=== PATIENT | female | born 1955 | race Caucasian/White ===

== ENCOUNTER 2022-02-01 14:34 | Outpatient (CLI) | payer MEDICARE, OTHER, SELFPAY ==
[2022-02-01 17:58] LABS: Cholesterol* 229 mg/dL (90-199)
[2022-02-01 17:59] LABS: Glucose* 95 mg/dL (60-115); HDL Cholesterol* 82 mg/dL (>=50); LDL Cholesterol Calculated 122 mg/dL (<100); Triglycerides* 123 mg/dL (40-149)
== END 2022-02-01 14:35 | disposition home or self-care (01) ==
LOC: NFLDREF 14:34
PROVIDERS: Visit Provider Internal Medicine
DX: Z00.00 Encounter for general adult medical examination without abnormal findings (principal); E78.5 Hyperlipidemia, unspecified; Z13.1 Encounter for screening for diabetes mellitus
CPT/HCPCS: 80061; 82947

== ENCOUNTER 2022-09-23 08:12 | Outpatient (CLI) | payer MEDICARE, OTHER, SELFPAY | END 2022-09-23 08:13 | disposition home or self-care (01) | PROVIDERS: Visit Provider Internal Medicine | DX: E78.5 Hyperlipidemia, unspecified (principal) | CPT/HCPCS: 80061 ==

== ENCOUNTER 2023-10-03 09:32 | Outpatient (CLI) | payer MEDICARE, OTHER, SELFPAY ==
--- OUTSIDE RECORDS SUMMARY | 2023-10-22 21:42 | XMS_ITS | Referral Summary ---
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 Care Plan ACP (advance care planning) 04/02/2012 [...] on file Medical Devices Implanted Type Area Brazer Assembler Device Identifier Shelf Expiration Date Model / Serial / Lot Imp Scr Locking 4.5x26mm Aqls [id number] - [id number] Implanted:Qt y: 2 on 03/09/2022 by Richard Villegas MD at [facility] Metallic Hardware/An chor Left: Shoulder [employer] [id number] / / 42 10 03/08/20 22 Imp Scr Fixation 4.5x18mm Aqls [id number] - [id number] Implanted:Qt y: 1 on 03/09/2022 by Richard Villegas MD at [facility] Metallic Hardware/An chor Left: Shoulder [employer] [id number] / / 42 10 03/08/20 22 Imp Baseplate Shldr Glenoid Aqls Rev Ii 25mm [id number] - [id number] Implanted:Qt y: 1 on 03/09/2022 by Richard Vlilegas MD at [facility] Total Joint Component/I nsert Left: Shoulder [employer] [id number] 10/08/2025 [id number] / / [id number] Imp Comp Shldr Glenoid Sphere Aqls Rev Ii 46c34tt Hqh946 - [id number] Implanted:Qt y: 1 on 03/09/2022 by Richard Villegas MD at [facility] Total Joint Component/I nsert Left: Shoulder [employer] [id number] 01/03/2027 [id number] / [id number] / Stem Humeral Ptc Long 2b - [id number] Implanted:Qt y: 1 on 03/09/2022 by Richard Villegas MD at [facility] Total Joint Component/I nsert Left: Shoulder [employer] [id number] 04/16/2026 [id number] / [id number] / Tray Reverse Low Offset +0 Xft558 - [id number] Implanted:Qt y: 1 on 03/09/2022 by Richard Villegas MD at [facility] Total Joint Component/I nsert Left: Shoulder [employer] [id number] 01/18/2027 [id number] / [id number] / Insert Revision Reverse +10/24 36mm - [id number] Implanted:Qt y: 1 on 03/09/2022 by Richard Villegas MD at [facility] Total Joint Component/I nsert Left: Shoulder [employer] [id number] 10/19/2026 [id number] / [id number] / Procedures Procedure Name Priority Date/Time Associated Diagnosis Comments MA SCREENING BILATERAL W/ HERNANDO Routine 09/01/2023 12:29 PM CDT Visit for screening mammogram GLUCOSE Routine 03/10/2022 8:39 AM CDT DX BONE DENSITY Routine 06/26/2020 1:49 PM PRODUCTION ENGINE REPAIRER Osteopenia COLONOSCOPY - HIM SCAN Routine 03/08/2016 [...] possible genetic testing and supplemental screening is: [phone]. Narrative 09/01/2023 2:59 PM CDT BILATERAL FULL [...] MD LAB - BLOOD ORDERAB LES LABORATORY [facility] [address] floor, [address] [place] [address], [facility] [phone] * DX Hip/Pelvis/Spine (06/26/2020 1:49 PM PRODUCTION ENGINE REPAIRER) Anatomical Region Laterality Modality Dexa Bone Mineral Den sity Impressions 06/26/2020 3:52 PM PRODUCTION ENGINE REPAIRER IMPRESSION: Normal bone mineral density. No statistically significant change in bone mineral density since 06/07/2017. ROSEANNE HOLDEN MD Narrative 06/26/2020 3:52 PM PRODUCTION ENGINE REPAIRER DX HIP/PELVIS/SPINE ??06/26/2020 1:49 PM HISTORY: ??Osteopenia. FINDINGS: This DEXA scan was performed using a Vasopharm scanner. DEXA results are reported according to [...] This DEXA scan was performed using a Vasopharm scanner. DEXA results are reported according to [...] Performing Organization Information: ? [place] ? [facility] ? [address] [place] [address] ? Antonio Tay M.D. Erin Padron MD LAB - BLOOD ORDERAB LES [facility] [address] [place] [address] * FOB (Fecal Occult Blood) (BFP) (11/08/2013) [...] Performing Organization Information: ? [place] ? [facility] ? [address] [place] [address] ? Antonio Tay M.D. Erin Padron MD LAB - NON-BEAKER NO N-BLOOD Performing Organization Address [facility] de Phone Number [facility] [address] [place] [address] * Hepatits C antibody ([facility]) (10/26/2013 10:06 AM CDT) HCV Antibody NON-REACTI VE NON-REACTI VE [facility] SIGNAL TO CUT OFF - [facility] 0.02 <1.00 [facility] Blood specimen (specimen) 10/26/2013 10:06 AM CDT 10/27/2013 2:07 AM CDT Narrative Resulting Agency Comment Performing Organization Information: ? CB ? [facility] ? [address] [place] [address] ? Antonio Tay M.D. Erin Padron MD LAB - BLOOD ORDERAB LES Performing Organization Address City/[facility] Co de Phone Number [facility] [address] [facility] [place] [address] * CT COLONOGRAPHY INC IMAGE PROCESS, SCREENING (12/06/2006) Anatomical Region Laterality Modality Other Provider Abstract GENERAL IMAGING from Last 3 Months or Most Recently Relevant to Health Maintenance Advance Directives For more information, please contact: [phone] * Full Code (Latest Code Status on File) Date Activated Date Inactivated Comments 03/09/2022 2:11 PM 03/10/2022 2:13 PM All basic and advanced life-sustaining interventions are performed as appropriate Question Answer Comments Code status determined by: Discussion with nanci goodwin/ legal decision maker Care Teams Bar Examiner Relationship Specialty Start Date End Date Monica Perrin MD [address] [place] [id number] PCP - General performing arts technicians 05/23/19
--- OUTSIDE RECORDS SUMMARY | 2023-10-22 21:42 | XMS_ITS | Encounter Summary ---
Author Organization [place] Address [address] [place] [address]. [place] [address] Care Team Providers Care Wind Turbine Installer Name Role Phone Monica Perrin MD Primary [...] on filedocumented in this encounter Care Teams Wind Turbine Installer Relationship Specialty Start Date End Date Monica Perrin MD [address] [place] [address] PCP - General tableau developer 05/23/19 documented as of this encounter
--- OUTSIDE RECORDS SUMMARY | 2023-10-22 21:42 | XMS_ITS | Encounter Summary ---
Author Organization [place] Address [address] [place] [address]. [place] [address] Care Team Providers Care Inspector Glass Or Mirror Name Role Phone Monica Perrin MD Primary Care Provider [phone] Encounter Details Date Type Department Care Team [...] on filedocumented in this encounter Care Teams Inspector Glass Or Mirror Relationship Specialty Start Date End Date Monica Perrin MD [address] [place] [address] PCP - General intermission coordinator 05/23/19 documented as of this encounter
--- OUTSIDE RECORDS SUMMARY | 2023-10-22 21:42 | XMS_ITS | Encounter Summary ---
Author Organization [place] Address [address] [place] [address]. [place] [address] Care Team Providers Care Vision Care Associate Name Role Phone Monica Perrin MD Primary [...] on filedocumented in this encounter Care Teams Vision Care Associate Relationship Specialty Start Date End Date Monica Perrin MD [address] [place] [address] PCP - General executive assistant to general counsel 05/23/19 documented as of this encounter
--- OUTSIDE RECORDS SUMMARY | 2023-10-22 21:42 | XMS_ITS | Encounter Summary ---
Author Organization [place] Address [address] [place] [address]. [place] [address] Care Team Providers Care Special Events Manager Name Role Phone Erin Padron MD [facility]available [facility] Melissa Guillen PA-C Unavailable Monica Perrin MD Primary Care Provider Reason for Visit * Reason Onset Date Comments MyChart Communication 06/06/2016 Encounter Details Date Type Department Care Team (Latest Contact Info) Description 06/06/2016 MyC Medical Advice [facility] [address] [place] [address] [address] [place] [address] Melissa Guillen PA-C [facility] [address] [facility] [address], [facility] [address] [place] [address] MyChart Communication Social History Tobacco Use Types [...] Melissa Guillen PA Sent: 06/06/2016 6:43 AM TRAVELERS' AID WORKER Subject: Update on facial pain HI Melissa, I have been taking the Carbamazepine 200 MG bid for almost a week. Not much difference in my pain. I do have an appointment with Neurology on Jun 14. Any suggestions? Have a good week, Nikki Lind ELERS' AID WORKER documented in this encounter Plan of Treatment Not on file documented as of this encounter Visit Diagnoses Not on filedocumented in this encounter Care Teams Special Events Manager Relationship Specialty Start Date End Date Monica Perrin MD [address] [place] [address] PCP - General blasting entry specialist 05/23/19 Erin Padron MD NO INFO AVAILABLE 12/08/22 Assigned PCP 10/29/17 11/17/18 Melissa Guillen PA-C [facility] [address] [place] [address] Assigned PCP 11/18/18 05/25/19 documented as of this encounter
--- OUTSIDE RECORDS SUMMARY | 2023-10-22 21:42 | XMS_ITS | Encounter Summary ---
Author Organization [place] Address [address] [place] [address]. [place] [address] Care Team Providers Care Health Service Worker Name Role Phone Monica Perrin MD Primary Care Provider Reason for Referral * Diagnostic Imaging Mammo (Routine) - Pending Review Specialty Diagnoses / Procedures Referred By Jorge galdamez Referred To Contact Radiology. Diagnoses Visit for screening mammogram Procedures MA Screen Bilateral w/Monica Jimenez MD [address] [place] [address] Referral ID Status Reason Start Date Expiration Date V isits Requested Visits Authorized [id number] Pending Review 08/07/2023 08/06/2024 1 1 Reason for Visit * Diagnostic Imaging Mammo (Routine) - Pending Review Specialty Diagnoses / Procedures Referred By Jorge galdamez Referred To Contact Radiology. Diagnoses Visit for screening mammogram Procedures MA Screen Bilateral w/Monica Jimenez MD [address] [employer] [address] [place] [address] Referral ID Status Reason Start Date Expiration Date V isits Requested Visits Authorized [id number] Pending Review 08/07/2023 08/06/2024 1 1 Encounter Details Date Type Department Care Team (Latest Contact Info) Description 09/01/2023 11:00 AM CDT - 09/01/2023 11:59 PM CDT Hospital Encounter [facility] [address], [address] [place] [address] Monica Perrin MD [address] [facility] [address] [place] [address] Visit for screening mammogram Discharge Disposition: Home [...] possible genetic testing and supplemental screening is: [phone]. Narrative 09/01/2023 2:59 PM CDT BILATERAL FULL [...] mammogram documented in this encounter Care Teams Health Service Worker Relationship Specialty Start Date End Date Monica Perrin MD [address] [place] [address] PCP - General oil analyst 05/23/19 documented as of this encounter
--- OUTSIDE RECORDS SUMMARY | 2023-10-22 21:42 | XMS_ITS | Encounter Summary ---
Author Organization [facility] Address [address] [place] [address]. [place] [address] Care Team Providers Care Columnist/Commentator Name Role Phone Monica Perrin MD Primary Care Provider [phone] Encounter Details Date Type Department Care Team (Late st Contact Info) Description 02/22/2022 Orders Only [facility] Centralized Scheduling [address] [place] [address] Jarrett Fiore MD [address] [place] [address] Encounter for laboratory testing for COVID-19 virus [...] the Xpert Xpress SARS-CoV-2 Assay on the [employer]. Additional information about this Emergency [...] COVID-19. This test was validated by the [facility] Infectious Diseases Diagnostic Laboratory. This laboratory is certified under the Clinical Laboratory Improvement Amendments of 1988 (CLIA-88) as qualified to perform high complexity laboratory testing. Jarrett Fiore MD LAB - MICRO GENERAL ORDERABLES [facility] Inf. Diseases Diag. Lab [address] [facility], [address] [place] [address], [facility] [phone] documented in this encounter Visit Diagnoses Diagnosis Encounter for laboratory testing for COVID-19 virus documented in this encounter Care Teams Columnist/Commentator Relationship Specialty Start Date End Date Monica Perrin MD [address] [facility] [address] [place] [address] PCP - General carbon plant grinder 05/23/19 documented as of this encounter
--- OUTSIDE RECORDS SUMMARY | 2023-10-22 21:43 | XMS_ITS | Encounter Summary ---
Author Organization [place] Address [address] [place] [address]. [place] [address] Care Team Providers Care Veterinary Receptionist Name Role Phone Erin Padron MD Unavailable UnavailMelissa Clemente PA-C Unavailable Monica Perrin MD Primary Care Provider [phone] Encounter Details Date Type Department Care Team (Late st Contact Info) Description 08/14/2006 [facility] Medical Advice [facility] [address] [place] [address] [address] [place] [phone] [facility] Social History Tobacco Use Types Packs/Day [...] on filedocumented in this encounter Care Teams Veterinary Receptionist Relationship Specialty Start Date End Date Monica Perrin MD [address] [facility] [address] [facility] [address] [place] [address] PCP - General neurosurgeon 05/23/19 Erin Padron MD NO INFO AVAILABLE 12/08/22 Assigned PCP 10/29/17 11/17/18 Melissa Guillen PA-C [facility] [address], [facility] 200 [place] [address] Assigned PCP 11/18/18 05/25/19 documented as of this encounter
--- OUTSIDE RECORDS SUMMARY | 2023-10-22 21:43 | XMS_ITS | Encounter Summary ---
Author Organization [place] Address [address] [place] [address]. [place] [address] Care Team Providers Care Mine Engineering Superintendent Name Role Phone Erin Padron MD Unavailable UnavailMelissa Clemente PA-C Unavailable Monica Perrin MD Primary Care Provider Encounter Details Date Type Department Care Team (Late st Contact Info) Description 04/01/2007 [facility] Medical Advice [facility] [address] [place] [address] [address] [place] [phone] [facility] Social History Tobacco Use Types Packs/Day [...] on filedocumented in this encounter Care Teams Mine Engineering Superintendent Relationship Specialty Start Date End Date Monica Perrin MD [address] [facility] [address] [facility] [address] [place] [address] PCP - General flask pusher 05/23/19 Erin Padron MD NO INFO AVAILABLE 12/08/22 Assigned PCP 10/29/17 11/17/18 Melissa Guillen PA-C [facility] [address], [facility] 200 [place] [address] Assigned PCP 11/18/18 05/25/19 documented as of this encounter
--- OUTSIDE RECORDS SUMMARY | 2023-10-22 21:43 | XMS_ITS | Encounter Summary ---
Author Organization [place] Address [address] [place] [address] Care Team Providers Care Director Of Perioperative Services Name Role Phone Erin Padron MD Unavailable Melissa Florentino PA-C Unavailable Monica Perrin MD Primary Care Provider Encounter Details Date Type Department Care Team (Late st Contact Info) Description 10/08/2015 MyC Medical Advice [facility] [address] [place] [address] [address] [place] [address] Erin Padron MD NO INFO [...] encounter Miscellaneous Notes * Telephone Encounter - Macrina HernandezMARTINA - 10/08/2015 1:57 PM CDTFrom: Nikki Wadsworth [...] an Rx could you send it to [facility]? documented in this encounter Plan of Treatment Not on file documented as of this encounter Visit Diagnoses Not on filedocumented in this encounter Care Teams Director Of Perioperative Services Relationship Specialty Start Date End Date Monica Perrin MD [address] [facility] [address] [place] [address] PCP - General side framer 05/23/19 Erin Padron MD NO INFO AVAILABLE 12/08/22 Assigned PCP 10/29/17 11/17/18 Melissa Guillen PA-C [facility] [address], [facility] [address] [place] [address] Assigned PCP 11/18/18 05/25/19 documented as of this encounter
--- OUTSIDE RECORDS SUMMARY | 2023-10-22 21:43 | XMS_ITS | Encounter Summary ---
Author Organization [place] Address [address] [place] [address]. [place] [address] Care Team Providers Care Licensed Land Surveyor Name Role Phone Erin Padron MD Unavailable Unavailabl e Melissa Guillen PA-C Unavailable Monica Perrin MD Primary Care Provider [phone] Reason for Visit * Reason Comments Medication Refill Encounter Details Date Type Department Care Team (Late st Contact Info) Description 01/06/2016 Refill [facility] [address] [place] [phone] Melissa Guillen PA-C [facility] [address] [facility] [place], [facility] [address] [place], [place] [address] Medication Refill Social History Tobacco Use Types [...] on filedocumented in this encounter Care Teams Licensed Land Surveyor Relationship Specialty Start Date End Date Monica Perrin MD [address] [place], [place] [address] PCP - General radio installer automobile 05/23/19 Erin Padron MD NO INFO AVAILABLE 12/08/22 Assigned PCP 10/29/17 11/17/18 Melissa Guillen PA-C [facility] [address], [address] [place], [place] [address] Assigned PCP 11/18/18 05/25/19 documented as of this encounter
--- OUTSIDE RECORDS SUMMARY | 2023-10-22 21:43 | XMS_ITS | Encounter Summary ---
Author Organization [place] Address [address] [place] [address]. [place] [address] Care Team Providers Care Canal Boat Captain Name Role Phone Erin Padron MD Unavailable UnavailMelissa Clemente PA-C Unavailable Monica Perrin MD Primary Care Provider [phone] Encounter Details Date Type Department Care Team (Late st Contact Info) Description 09/11/2006 [facility] [place] [facility] [address] [place] [address] [address] [place] [phone] [facility] Social History Tobacco Use Types Packs/Day Years [...] on filedocumented in this encounter Care Teams Canal Boat Captain Relationship Specialty Start Date End Date Monica Perrin MD [address] [facility] [address]LA [facility] [address] [place] [address] PCP - General water treatment plant operator 05/23/19 Erin Padron MD NO INFO AVAILABLE 12/08/22 Assigned PCP 10/29/17 11/17/18 Melissa Guillen PA-C [facility] [address], [facility] [address] [place] [address] Assigned PCP 11/18/18 05/25/19 documented as of this encounter
== END 2023-10-03 09:33 | disposition home or self-care (01) ==
LOC: NFLDREF 10-22 21:40
PROVIDERS: PCP Internal Medicine; Referring Provider Internal Medicine; Visit Provider Internal Medicine
DX: Z00.00 Encounter for general adult medical examination without abnormal findings (principal); E78.5 Hyperlipidemia, unspecified
CPT/HCPCS: 80061

== ENCOUNTER 2023-10-05 13:43 | Outpatient (CLI) | payer MEDICARE, OTHER, SELFPAY ==
--- OUTSIDE RECORDS SUMMARY | 2023-10-05 13:47 | XMS_ITS | Encounter Summary ---
Author Organization [facility] Address [address] [place] [address]. [place] [address] Care Team Providers Care Barn Worker Name Role Phone Monica Perrin MD Primary Care Provider [phone] Encounter Details Date Type Department Care Team (Latest Contact Info) Description 09/01/2023 Travel Social History Tobacco Use Types Packs/Day Years Used Date Smoking Tobacco: Never Smokeless Tobacco: Never Alcohol Use Standard Drinks/Week Comments Yes 5 (1 standard drink = 0.6 oz pur e alcohol) occasionally Adolescent Education Answer Date Record ed Getting School Help Needed Not on file 02/26 Sex and Gender Information Value Date Recorded Sex Assigned at Female 02/27/2022 8:08 AM CDT Gender Identity Female 02/27/2022 8:08 AM CDT Sexual Orientation Not on file documented as of this encounter Plan of Treatment Not on file documented as of this encounter Visit Diagnoses Not on filedocumented in this encounter Care Teams Barn Worker Relationship Specialty Start Date End Date Monica Perrin MD [address] [place] [address] PCP - General food cart attendant 05/23/19 documented as of this encounter
--- OUTSIDE RECORDS SUMMARY | 2023-10-05 13:47 | XMS_ITS | Referral Summary ---
Author Organization [facility] Address [address] [place] [address] Care Team Providers Care Hydroelectric Systems Technician Name Role Phone Monica Perrin MD Primary Care Provider [phone] Encounters Date Type Department Care Team Description 09/01/2023 Travel 09/01/2023 11:00 AM CDT - 09/01/2023 11:59 PM CDT Hospital Encounter [facility] [address], [address] [place] [address] Monica Perrin MD Visit for screening mammogram Discharge Disposition: Home or Self Care 08/28/2023 Travel from Last 3 Months Allergies Active Allergy Reactions Criticality Noted Date Comments No Known Allergies 07/07/1999 Medications Medication Sig Dispensed Refills Start Date End Date Status fish oil-omega-3 fatty acids 1000 MG capsule Take 1 g by mouth daily Active vitamin D3 (CHOLECALCIFEROL) 50 mcg (2000 units) tablet Take 1 tablet by mouth daily Active Magnesium Oxide 500 MG TABS Take 500 mg by mouth daily Active acetaminophen (TYLENOL) 500 MG tablet Take 1,000 mg by mouth 2 times daily as needed for mild pain (500MG X 2 = 1,000MG) Active escitalopram (LEXAPRO) 10 MG tablet Take 10 mg by mouth daily Active omeprazole (PRILOSEC) [address] capsule Take 20 mg by mouth daily Active senna-docusate (SENOKOT-S/PERICOLAC E) 8.6-50 MG tablet Take 1-2 tablets by mouth 2 times daily Take while on oral narcotics to prevent or treat constipation. 30 tablet 03/09/2022 Active oxyCODONE (ROXICODONE) 5 MG tablet Take 1-2 tablets (5-10 mg) by mouth every 4 hours as needed for moderate to severe pain 30 tablet 03/09/2022 Active hydrOXYzine (ATARAX) 10 MG tablet Take 1 tablet (10 mg) by mouth every 6 hours as needed for itching or anxiety (with pain, moderate pain) 30 tablet 03/09/2022 Active Active Problems Problem Noted Date Diagnosed Date Health Alf 04/02/2012 Overview: State Tier Level: Tier 2 Status: Care Professionals: See Letters for [facility] Care Plan ACP (advance care planning) 04/02/2012 Overview: Advance Care Planning: ACP Review and Resources Provided: Reviewed chart for advance care plan. Nikki Norton has no plan or code status on file. Discussed available resources and provided with information. Confirmed code status reflects current choices pending further ACP discussions. Confirmed/documented designated decision maker(s). See permanent comments section of demographics in clinical tab. Added by Sveta Patel on 10/26/2013 Malignant basal cell neoplasm of skin 04/02/2012 Overview: Do you wish to do the replacement in the background? yes Depression with anxiety 04/02/2012 Family history of malignant neoplasm of breast Other kyphoscoliosis and scoliosis Resolved Problems Problem Noted Date Diagnosed Date Resolved Date Cataract 05/04/2010 10/24/2014 Overview: Utility update for deleted IMO code Imo Update utility Other acne 04/02/2012 Benign neoplasm of skin 03/15 Overview: Problem list name updated by automated process. Provider to review Mitral and aortic valve disease 04/02/2012 Overview: Problem list name updated by automated process. Provider to review Immunizations Name Administration Dates Next Due COVID-19 Bivalent 12+ (Pfizer) 11/18/2021 COVID-19 MONOVALENT 12+ (Pfizer) 02/10/2021,05/15,05/12/2020 HEPA 11/10/1998,04/14/1998 Influenza (H1N1) 06/12/2009 Influenza (IIV3) PF 03/19/2012,01/18/2010,2008 TD,PF 7+ (Tenivac) 06/20/2003 TDAP Vaccine (Boostrix) 10/05/2011 Social History Tobacco Use Types Packs/Day Years Used Date Smoking Tobacco: Never Smokeless Tobacco: Never Tobacco Cessation:Counseling Given: Not Answered Alcohol Use Standard Drinks/Week Comments Yes 5 (1 standard drink = 0.6 oz pur e alcohol) occasionally Adolescent Education Answer Date Record ed Getting School Help Needed Not on file 02/26 Sex and Gender Information Value Date Recorded Sex Assigned at Female 02/27/2022 8:08 AM CDT Gender Identity Female 02/27/2022 8:08 AM CDT Sexual Orientation Not on file Last Filed Vital Signs Vital Sign Reading Time Taken Comments Blood Pressure 155/74 03/10/2022 8:31 AM CDT Pulse 72 03/10/2022 8:31 AM CDT Temperature 36.9 ??C (98.5 ??F) 03/10/2022 8:31 AM CD T Respiratory Rate 16 03/10/2022 8:31 AM CDT Oxygen Saturation 97% 03/10/2022 8:31 AM CDT Inhaled Oxygen Concentration - - Weight 70.4 kg (155 lb 4.8 oz) 03/09/2022 7:39 A M CDT Height 167.6 cm (5' 6) 03/09/2022 7:39 AM CDT Body Mass Index 25.07 03/09/2022 7:39 AM CDT Plan of Treatment Not on file Medical Devices Implanted Type Area Clean Up Worker Device Identifier Shelf Expiration Date Model / Serial / Lot Imp Scr Locking 4.5x26mm Aqls [id number] - [id number] Implanted:Qt y: 2 on 03/09/2022 by Richard Villegas MD at [facility] Metallic Hardware/An chor Left: Shoulder [employer] [id number] / / 42 10 03/08/20 22 Imp Scr Fixation 4.5x18mm Aqls [id number] - [id number] Implanted:Qt y: 1 on 03/09/2022 by Richard Villegas MD at [facility] Metallic Hardware/An chor Left: Shoulder [employer] [id number] / / 42 10 03/08/20 22 Imp Baseplate Shldr Glenoid Aqls Rev Ii 25mm [id number] - [id number] Implanted:Qt y: 1 on 03/09/2022 by Richard Villegas MD at [facility] Total Joint Component/I nsert Left: Shoulder [employer] [id number] 10/08/2025 [id number] / / [id number] Imp Comp Shldr Glenoid Sphere Aqls Rev Ii [id number] [id number] - [id number] Implanted:Qt y: 1 on 03/09/2022 by Richard Villegas MD at [facility] Total Joint Component/I nsert Left: Shoulder [employer] [id number] 01/03/2027 [id number] / [id number] / Stem Humeral Ptc Long 2b - [id number] Implanted:Qt y: 1 on 03/09/2022 by Richard Villegas MD at [facility] Total Joint Component/I nsert Left: Shoulder [employer] [id number] 04/16/2026 [id number] / [id number] / Tray Reverse Low Offset +0 [id number] - [id number] Implanted:Qt y: 1 on 03/09/2022 by Richard Villegas MD at [facility] Total Joint Component/I nsert Left: Shoulder [employer] [id number] 01/18/2027 [id number] / [id number] / Insert Revision Reverse +10/24 36mm - [id number] Implanted:Qt y: 1 on 03/09/2022 by Richard Villegas MD at [facility] Total Joint Component/I nsert Left: Shoulder [employer] [id number] 10/19/2026 [id number] / [id number] / Procedures Procedure Name Priority Date/Time Associated Diagnosis Comments MA SCREENING BILATERAL W/ HERNANDO Routine 09/01/2023 12:29 PM CDT Visit for screening mammogram GLUCOSE Routine 03/10/2022 8:39 AM CDT DX BONE DENSITY Routine 06/26/2020 1:49 PM FILLER IN Osteopenia COLONOSCOPY - HIM SCAN Routine 03/08/2016 LIPID PROFILE Routine 11/18/2015 4:14 PM CDT Encounter for gynecological examination without abnormal finding ZZCL AFF FECAL BLOOD ASSAY Routine 11/08/2013 Routine gynecological examination THINPREP PAP RFLX HPV MRNA E6/E7 ([facility]) Routine 10/26/2013 10:07 AM CDT Routine gynecological examination HEPATITIS C ANTIBODY Routine 10/26/2013 10:06 AM CDT Routine gynecological examination HC CT COLONOGRAPHY, SCREENING Routine 12/06/2006 SCANNING RESULTS from Last 3 Months or Most Recently Relevant to Health Maintenance Results * MA Screen Bilateral w/[place]ern[place] (09/01/2023 12:29 PM CDT) Anatomical Region Laterality Modality Breast Bilateral Mammography Impressions 09/01/2023 2:59 PM CDT IMPRESSION: ACR BI-RADS Category 1: Negative BREAST CANCER SCREENING RECOMMENDATION: Routine yearly mammography beginning at age 40 or as discussed with your provider. The results and recommendations of this examination will be communicated to the patient. Abbe Farias MD Based on the pre-exam history questionnaire and medical history, there may be increased risk for developing breast cancer or other cancers in the future. The contact for scheduling cancer genetic counseling for risk assessment and possible genetic testing and supplemental screening is: [phone]. Narrative 09/01/2023 2:59 PM CDT BILATERAL FULL FIELD DIGITAL SCREENING MAMMOGRAM WITH TOMOSYNTHESIS Performed on: 09/01/23 Compared to: 08/30/2022 and 06/07/2017 Technique: ??This study was evaluated with the assistance of Computer-Aided Detection. ??Breast Tomosynthesis was used in interpretation. Findings: The breasts are heterogeneously dense, which may obscure small masses. ??There is no radiographic evidence of malignancy. Monica Perrin MD IMG MAMMOGRAPHY SHELLI MOSHER * (ABNORMAL) Glucose (03/10/2022 8:39 AM CDT) Glucose 116(H) 70 - 99 mg/dL 03/10/2022 9:19 AM CDT LABORATORY Patient Fasting > 8hrs? Unknown 03/10/2022 9:19 AM CDT LABORATORY Blood STRUCTURE OF RIGHT UPPER LIMB / Unknown Venipuncture / Unknown 03/10/2022 8:39 AM CDT 03/10/2022 8:51 AM CDT Richard Villegas MD LAB - BLOOD ORDERAB LES LABORATORY [facility] [address], [address] [place] [address], [facility] [phone] * DX Hip/Pelvis/Spine (06/26/2020 1:49 PM FILLER IN) Anatomical Region Laterality Modality Dexa Bone Mineral Den sity Impressions 06/26/2020 3:52 PM FILLER IN IMPRESSION: Normal bone mineral density. No statistically significant change in bone mineral density since 06/07/2017. ROSEANNE HOLDEN MD Narrative 06/26/2020 3:52 PM FILLER IN DX HIP/PELVIS/SPINE ??06/26/2020 1:49 PM HISTORY: ??Osteopenia. FINDINGS: This DEXA scan was performed using a AfterSteps scanner. DEXA results are reported according to T-score. ??The T-score is the standard deviation from the peak bone mass in a normal young adult population. ??In accordance with the ISCD (International Society of Clinical Densitometry), the lower of the total proximal femur vs femoral neck T-score is reported. ??Osteopenia is defined as a T-score of -1.0 to -2.5. ??Osteoporosis is defined as a T-score of less than -2.5. T-SCORES: Lumbar Spine L1-L4 T-score: -0.9 Left Hip (Neck) T-score: -0.7 Right Hip (Neck) T-score: -0.8 Hip lowest neck BMD: 0.929 gm/cm2. PERCENT CHANGE since 06/07/2017: Lumbar Spine: Not significantly changed, -0.5% Femurs: Not significantly changed, 0.7% FRAX 10-YEAR PROBABILITY OF FRACTURE*: Major Osteoporotic: 7.0% Hip: 0.4% *All treatment decisions require clinical judgment and consideration of individual patient factors which may not be captured in the FRAX model and the risk of fracture may be over- or under-estimated by FRAX. Procedure Note Roseanne Holden MD - 06/26/2020 DX HIP/PELVIS/SPINE 06/26/2020 1:49 PM HISTORY: Osteopenia. FINDINGS: This DEXA scan was performed using a AfterSteps scanner. DEXA results are reported according to T-score. The T-score is the standard deviation from the peak bone mass in a normal young adult population. In accordance with the ISCD (International Society of Clinical Densitometry), the lower of the total proximal femur vs femoral neck T-score is reported. Osteopenia is defined as a T-score of -1.0 to -2.5. Osteoporosis is defined as a T-score of less than -2.5. T-SCORES: Lumbar Spine L1-L4 T-score: -0.9 Left Hip (Neck) T-score: -0.7 Right Hip (Neck) T-score: -0.8 Hip lowest neck BMD: 0.929 gm/cm2. PERCENT CHANGE since 06/07/2017: Lumbar Spine: Not significantly changed, -0.5% Femurs: Not significantly changed, 0.7% FRAX 10-YEAR PROBABILITY OF FRACTURE*: Major Osteoporotic: 7.0% Hip: 0.4% *All treatment decisions require clinical judgment and consideration of individual patient factors which may not be captured in the FRAX model and the risk of fracture may be over- or under-estimated by FRAX. IMPRESSION: Normal bone mineral density. No statistically significant change in bone mineral density since 06/07/2017. ROSEANNE HOLDEN MD Monica Perrin MD IMG DEXA ORDERABLES * Colonoscopy - HIM Scan (03/08/2016) Provider Outside PROCEDURES * (ABNORMAL) Lipid Profile ([facility]) (11/18/2015 4:14 PM CDT) Cholesterol 207(H) 125 - 200 mg/dL [facility] HDL Cholesterol 95 > OR = 46 mg/dL [facility] Triglycerides 53 <150 mg/dL [facility] LDL Cholesterol Calculated 101 <130 mg/dL (calc) [facility] Comment: Desirable range <100 mg/dL for patients with CHD or diabetes and <70 mg/dL for diabetic patients with known heart disease. Cholesterol/HDL Ratio 2.2 < OR = 5.0 (calc) [facility] Non HDL Cholesterol 112 mg/dL (calc) [facility] Comment: Target for non-HDL cholesterol is 30 mg/dL higher than LDL cholesterol target. Blood specimen (specimen) 11/18/2015 4:14 PM CDT 11/19/2015 3:48 AM CDT Narrative Resulting Agency Comment Performing Organization Information: ? CB ? [facility] ? [address] [place] [address] ? Antonio Tay M.D. Erin Padron MD LAB - BLOOD ORDERAB LES [facility] [address] [place] [address] * FOB (Fecal Occult Blood) ([facility]) (11/08/2013) Occult Blood NEG [facility] INTERNAL 11/08/2013 Erin Padron MD LABORATORY [facility] INTERNAL * ThinPrep Pap and HPV (mRNA E6/E7){HPV-REFLEX} ([facility]) (10/26/2013 10:07 AM CDT) Clinical History P3 [facility] LMP POST CHRISTY [facility] Last Pap Diagnosis 52,313 [facility] Prev Bx Dx NONE GIVEN [facility] Source Cervix [facility] Statement of Adequacy SEE COMMENT [facility] Comment: Satisfactory for evaluation. Endocervical/transformation zone component present. Descriptive Diagnosis Negative for intraepithelial lesion or malignancy. [facility] Cytotechnologi st: ERP, CT(ASCP) [facility] Cervical swab (specimen) 10/26/2013 10:07 AM CDT 10/27/2013 3:50 AM CDT Narrative Resulting Agency Comment Performing Organization Information: ? [place] ? [facility] ? [address] [place] [address] ? Antonio Tay M.D. Erin Padron MD LAB - NON-BEAKER NO N-BLOOD Performing Organization Address [facility] de Phone Number [facility] [address] [place] [address] * Hepatits C antibody ([facility]) (10/26/2013 10:06 AM CDT) HCV Antibody NON-REACTI VE NON-REACTI VE [facility] SIGNAL TO CUT OFF - [facility] 0.02 <1.00 [facility] Blood specimen (specimen) 10/26/2013 10:06 AM CDT 10/27/2013 2:07 AM CDT Narrative Resulting Agency Comment Performing Organization Information: ? CB ? [facility] ? [address] [place] [address] ? Antonio aTy M.D. Erin Padron MD LAB - BLOOD ORDERAB LES Performing Organization Address City/[facility] Co de Phone Number [facility] [address] [place] [address] * CT COLONOGRAPHY INC IMAGE PROCESS, SCREENING (12/06/2006) Anatomical Region Laterality Modality Other Provider Abstract GENERAL IMAGING from Last 3 Months or Most Recently Relevant to Health Maintenance Advance Directives For more information, please contact: [phone] * Full Code (Latest Code Status on File) Date Activated Date Inactivated Comments 03/09/2022 2:11 PM 03/10/2022 2:13 PM All basic and advanced life-sustaining interventions are performed as appropriate Question Answer Comments Code status determined by: Discussion with nanci goodwin/ legal decision maker Care Teams Hydroelectric Systems Technician Relationship Specialty Start Date End Date Monica Perrin MD [address] [place] [id number] PCP - General financial data analyst 05/23/19
--- OUTSIDE RECORDS SUMMARY | 2023-10-05 13:47 | XMS_ITS | Encounter Summary ---
Author Organization [facility] Address [address] [place] [address]. [place] [address] Care Team Providers Care Quill Skinner Name Role Phone Monica Perrin MD Primary Care Provider [phone] Encounter Details Date Type Department Care Team (Late st Contact Info) Description 02/22/2022 Orders Only [facility] Centralized Scheduling [address] [place] [address] Jarrett Fiore MD [address] [place] [address] Encounter for laboratory testing for COVID-19 virus Social History Tobacco Use Types Packs/Day Years Used Date Smoking Tobacco: Never Smokeless Tobacco: Never Alcohol Use Standard Drinks/Week Comments Yes 5 (1 standard drink = 0.6 oz pur e alcohol) occasionally Sex and Gender Information Value Date Recorded Sex Assigned at Female 02/27/2022 8:08 AM CDT Gender Identity Female 02/27/2022 8:08 AM CDT Sexual Orientation Not on file documented as of this encounter Plan of Treatment Not on file documented as of this encounter Results * Asymptomatic COVID-19 Virus (Coronavirus) by PCR Nasopharyngeal (03/05/2022 10:39 AM CDT) SARS CoV2 PCR Negative Negative 03/05/2022 3:11 PM CDT [facility] Comment:NEGATIVE: SARS-CoV-2 (COVID-19) RNA not detected, presumed negative. Swab NASOPHARYNGEAL STRUCTURE / Unknown Non-blood Collection / Unknown 03/05/2022 10:39 AM CDT 03/05/2022 10:40 AM CDT Narrative [facility] - 03/05/2022 3:11 PM CDT Testing was performed using the Xpert Xpress SARS-CoV-2 Assay on the [employer]. Additional information about this Emergency Use Authorization (EUA) assay can be found via the Lab Guide. This test should be ordered for the detection of SARS-CoV-2 in individuals who meet SARS-CoV-2 clinical and/or epidemiological criteria. Test performance is unknown in asymptomatic patients. This test is for in vitro diagnostic use under the FDA EUA for laboratories certified under CLIA to perform high complexity testing. This test has not been FDA cleared or approved. A negative result does not rule out the presence of PCR inhibitors in the specimen or target RNA in concentration below the limit of detection for the assay. The possibility of a false negative should be considered if the patient's recent exposure or clinical presentation suggests COVID-19. This test was validated by the [facility]. This laboratory is certified under the Clinical Laboratory Improvement Amendments of 1988 (CLIA-88) as qualified to perform high complexity laboratory testing. Jarrett Fiore MD LAB - MICRO GENERAL ORDERABLES [facility] Inf. Diseases Diag. Lab [address] [facility] [place] [address], [facility] [phone] documented in this encounter Visit Diagnoses Diagnosis Encounter for laboratory testing for COVID-19 virus documented in this encounter Care Teams Quill Skinner Relationship Specialty Start Date End Date Monica Perrin MD [address] [facility] [address] [place] [address] PCP - General manager mental health 05/23/19 documented as of this encounter
--- OUTSIDE RECORDS SUMMARY | 2023-10-05 13:47 | XMS_ITS | Encounter Summary ---
Author Organization [facility] Address [address] [place] [address] Care Team Providers Care Ceramics Teacher Name Role Phone Erin Padron MD [facility]available [facility] Melissa Guillen Unavailable [phone] Monica Perrin MD Primary Care Provider Reason for Visit * Reason Onset Date Comments MyChart Communication 06/06/2016 Encounter Details Date Type Department Care Team (Late st Contact Info) Description 06/06/2016 [facility] Medical Advice [facility] [address] [place] [address] [address] [place] [address] [place] [address] [place] [address] MyChart Communication Social History Tobacco Use Types Packs/Day Years [...] on file documented as of this encounter Miscellaneous Notes * Telephone Encounter - Julia Dorado MA - 06/06/2016 7:36 AM CSTFrom: Nikki Norton To: Melissa Guillen PA Sent: 06/06/2016 6:43 AM CONVEYOR FEEDER Subject: Update on facial pain HI Melissa, I have been taking the Carbamazepine 200 MG bid for almost a week. Not much difference in my pain. I do have an appointment with Neurology on Jun 14. Any suggestions? Have a good week, Nikki Lind EYOR FEEDER documented in this encounter Plan of Treatment Not on file documented as of this encounter Visit Diagnoses Not on filedocumented in this encounter Care Teams Ceramics Teacher Relationship Specialty Start Date End Date Monica Perrin MD [address] [facility] [address] [place] [address] PCP - General carpet cleaning technician 05/23/19 Erin Padron MD NO INFO AVAILABLE 12/08/22 Assigned PCP 10/29/17 11/17/18 [place] [address] [place] [address] Assigned PCP 11/18/18 05/25/19 documented as of this encounter
--- OUTSIDE RECORDS SUMMARY | 2023-10-05 13:47 | XMS_ITS | Encounter Summary ---
Author Organization [facility] Address [address] [place] [address]. [place] [address] Care Team Providers Care Business Employment Specialist Name Role Phone Erin Padron MD Unavailable Unavailabl e Melissa Guillen Unavailable [phone] Monica Perrin MD Primary Care Provider Reason for Visit * Reason Comments Medication Refill Encounter Details Date Type Department Care Team (Late st Contact Info) Description 01/06/2016 Refill [facility] [address] [place] [address] [address] [place] [phone] [place] [address] [place] [address] Medication Refill Social History Tobacco Use Types Packs/Day Years [...] on filedocumented in this encounter Care Teams Business Employment Specialist Relationship Specialty Start Date End Date Monica Perrin MD [address] [place] [address] PCP - General php mysql web developer 05/23/19 Erin Padron MD NO INFO AVAILABLE 12/08/22 Assigned PCP 10/29/17 11/17/18 [place] [address] [place] [address] Assigned PCP 11/18/18 05/25/19 documented as of this encounter
--- OUTSIDE RECORDS SUMMARY | 2023-10-05 13:47 | XMS_ITS | Encounter Summary ---
Author Organization [facility] Address [address] [place] [address]. [place] [address] Care Team Providers Care Stained Glass Glazier Helper Name Role Phone Monica Perrin MD Primary Care Provider Encounter Details Date Type Department Care Team (Late st Contact Info) Description 03/09/2022 Documentation Only INTERFACED REPORT Outside, Provider Social History Tobacco Use Types Packs/Day Years Used Date Smoking Tobacco: Never Smokeless Tobacco: Never Alcohol Use Standard Drinks/Week Comments Yes 5 (1 standard drink = 0.6 oz pur e alcohol) occasionally Sex and Gender Information Value Date Recorded Sex Assigned at Female 02/27/2022 8:08 AM CDT Gender Identity Female 02/27/2022 8:08 AM CDT Sexual Orientation Not on file COVID-19 Exposure Response Date Recorded In the last 10 days, have yo u been in contact with someone who was confirmed or suspected to have Coronavirus/COVID-19? No / Unsure 03/09/2022 7:09 AM CDT documented as of this encounter Plan of Treatment Not on file documented as of this encounter Visit Diagnoses Not on filedocumented in this encounter Care Teams Stained Glass Glazier Helper Relationship Specialty Start Date End Date Monica Perrin MD [address] [place] [address] PCP - General section housekeeper 05/23/19 documented as of this encounter
--- OUTSIDE RECORDS SUMMARY | 2023-10-05 13:47 | XMS_ITS | Encounter Summary ---
Author Organization [place] Address [address] [place] [address] Care Team Providers Care Roll Forming Machine Set Up Operator Name Role Phone Erin Padron MD Unavailable UnavailMelissa Clemente Unavailable [phone] Monica Perrin MD Primary Care Provider [phone] Encounter Details Date Type Department Care Team (Late st Contact Info) Description 10/08/2015 [facility] Medical Advice [facility] Physicians [address] [place] [address] [address] [place] [address] Erin Padron MD NO INFO AVAILABLE 12/08/22 Social History Tobacco Use Types Packs/Day Years [...] encounter Miscellaneous Notes * Telephone Encounter - Mary MacrinaMARTINA - 10/08/2015 1:57 PM CDTFrom: Nikki Wadsworth Cierra To: Erin Padron MD Sent: 10/08/2015 1:09 PM CDT Subject: Still coughing Hi Dr Padron! I am at work today and still having gagging coughing jags while talking or laughing.At times I hear a wheeze when I cough and breathe deep. The Tesslon Rx does not seem to have an effect. I do cough up some cloudy mucous and still have nasal congestion. Do you think an inhaler may help ? I think I would like an Rx for an antibiotic in case I get sick on vacation. Thanks so much. If you decide to send an Rx could you send it to [facility]? documented in this encounter Plan of Treatment Not on file documented as of this encounter Visit Diagnoses Not on filedocumented in this encounter Care Teams Roll Forming Machine Set Up Operator Relationship Specialty Start Date End Date Monica Perrin MD [address] [facility] [address] [place] [address] PCP - General stamp mounter 05/23/19 Erin Padron MD NO INFO AVAILABLE 12/08/22 Assigned PCP 10/29/17 11/17/18 [place] [address] [facility] [address] [place] [address] Assigned PCP 11/18/18 05/25/19 documented as of this encounter
--- OUTSIDE RECORDS SUMMARY | 2023-10-05 13:47 | XMS_ITS | Clinical Summary ---
Author Organization [place] Address [address] [place] [address] Care Team Providers Care Digital Sales Planner Name Role Phone Monica Perrin MD Primary Care Provider [phone] Allergies Active Allergy Reactions Criticality Noted Date [...] Problems Problem Noted Date Diagnosed Date Health Intermediate 04/02/2012 Overview: State Tier Level: Tier 2 Status: NA Seasonal Driver: See Letters for [facility] Care Plan ACP (advance care planning) [...] updated by automated process. Provider to review Encounters Date Type Department Care Team Description 09/01/2023 11:00 AM CDT - 09/01/2023 11:59 PM CDT Hospital Encounter [facility] [address], [address] [place] [address] Monica Perrin MD Visit for screening mammogram Discharge Disposition: Home or Self Care 09/01/2023 Travel 08/28/2023 Travel from Last 3 Months Immunizations Name Administration Dates Next Due COVID-19 Bivalent 12+ (Pfizer) 11/18/2021 COVID-19 MONOVALENT 12+ (Pfizer) 02/10/2021,05/15,05/12/2020 HEPA 11/10/1998,04/14/1998 Influenza (H1N1) 06/12/2009 Influenza (IIV3) PF 03/19/2012,01/18/2010,2008 TD,PF 7+ (Tenivac) 06/20/2003 TDAP Vaccine (Boostrix) 10/05/2011 Family History Medical History Relation Comments Cancer Brother 2 prostate Attention Deficit Disorder Daughter 3 Prostate Cancer Father prostate Respiratory Father emphysema; at age 80 Breast Cancer Mother Neurologic Disorder Mother dementia Ovarian Cancer Paternal Grandmother Breast Cancer Sister 2 Psychotic Disorder Sister 3 schizophrenia Attention Deficit Disorder Son 2 Relation Status Comments Brother 1 Alive Brother 2 Daughter 1 Alive Daughter 2 Alive Daughter 3 Father Mother Paternal Grandmother Sister 1 breast Cancer Sister 2 Sister 3 Son 1 Alive Son 2 Social History Tobacco Use Types Packs/Day Years [...] 03/09/2022 7:39 AM CDT Plan of Treatment Health Maintenance Due Date Last Done Comments ANNUAL REVIEW OF HM ORDERS 1955 FLEX SIG 1956 sDNA (Cologuard) 1956 CT COLONOGRAPHY 12/07/2011 12/06/2006 FIT 11/08/2014 11/08/2013, 10/17/2012 RSV VACCINE ( & 60+) (1 - 1-dose 60+ series) 2016 ADVANCE CARE PLANNING 10/26/2018 10/26/2013 , 04/02/2012, 04/02/2012 LIPID 11/17/2020 11/18/2015, 07/05/2014, 10/26/2013, Additional history exists FALL RISK ASSESSMENT 2021 MEDICARE ANNUAL WELLNESS VISIT 2021 11/18/2015, 11/12/2014, 10/26/2013, Additional history exists DTAP/TDAP/TD IMMUNIZATION (2 - Td or Tdap) 10/04/2021 10/05/2011, 06/20/2003, 06/06/1989 COVID-19 Vaccine ( season) 2023 02/08/2022, 11/18/2021, 02/10/2021, Additional history exists PHQ-2 (once per calendar year) 2023 GLUCOSE 03/10/2025 03/10/2022, 11/12/2014 MAMMO SCREENING 08/31/2025 09/01/2023, 08/13, 07/07/2021, Additional history exists COLONOSCOPY 03/08/2026 03/08/2016, 11/30/2006 COLORECTAL CANCER SCREENING 03/08/2026 DEXA 06/26/2035 06/26/2020, 05/16, 07/13/2007 HEPATITIS C SCREENING Completed 10/26/2013 PAP Discontinued 10/26/2013, 09/13, 09/10/2009, Additional history exists ZOSTER IMMUNIZATION Completed 07/14/2017, 7 Pneumococcal Vaccine: 65+ Years Completed 02/01/2022 INFLUENZA VACCINE Completed 02/07/2023, , 03/09/2021, Additional history exists HPV IMMUNIZATION Aged Out No longer e ligible based on patient's age to complete this topic IPV IMMUNIZATION Aged Out No longer e ligible based on patient's age to complete this topic MENINGITIS IMMUNIZATION Aged Out No l onger eligible based on patient's age to complete this topic RSV MONOCLONAL ANTIBODY Aged Out No l onger eligible based on patient's age to complete this topic Medical Devices Implanted Type Area Manager Research Device Identifier Shelf Expiration Date Model / Serial / Lot Imp Scr Locking 4.5x26mm Aqls [id number] - [id number] Implanted:Qt y: 2 on 03/09/2022 by Richard Villegas MD at [facility] Metallic Hardware/An chor Left: Shoulder [employer] [id number] 03/08/20 22 Imp Scr Fixation 4.5x18mm Aqls [id number] - [id number] Implanted:Qt y: 1 on 03/09/2022 by Richard Villegas MD at [facility] Metallic Hardware/An chor Left: Shoulder [employer] [id number] 03/08/20 22 Imp Baseplate Shldr Glenoid Aqls Rev Ii 25mm [id number] - [id number] Implanted:Qt y: 1 on 03/09/2022 by Richard Villegas MD at [facility] Total Joint Component/I nsert Left: Shoulder [employer] [id number] 10/08/2025 [id number] / / [id number] Imp Comp Shldr Glenoid Sphere Aqls Rev Ii [id number] - [id number] Implanted:Qt y: 1 on 03/09/2022 by Richard Villegas MD at [facility] Total Joint Component/I nsert Left: Shoulder [employer] [id number] 01/03/2027 [id number] / [id number] / Stem Humeral Ptc Long 2b - [id number] Implanted:Qt y: 1 on 03/09/2022 by Richard Villegas MD at [facility] Total Joint Component/I nsert Left: Shoulder [employer] [id number] 04/16/2026 [id number] / [id number] / Tray Reverse Low Offset +0 [id number] - [id number] Implanted:Qt y: 1 on 03/09/2022 by Richard Villegas MD at [facility] Total Joint Component/I nsert Left: Shoulder [employer] [id number] 01/18/2027 [id number] / [id number] / Insert Revision Reverse +10/24 36mm - [id number] Implanted:Qt y: 1 on 03/09/2022 by Richard Villegas MD at [facility] Total Joint Component/I nsert Left: Shoulder [employer] [id number] 10/19/2026 [id number] / [id number] / Procedures Procedure Name Priority Date/Time Associated Diagnosis Comments MA SCREENING BILATERAL W/ HERNANDO Routine 09/01/2023 12:29 PM CDT Visit for screening mammogram GLUCOSE Routine 03/10/2022 8:39 AM CDT DX BONE DENSITY Routine 06/26/2020 1:49 PM WELD FITTER Osteopenia COLONOSCOPY - HIM SCAN Routine 03/08/2016 [...] possible genetic testing and supplemental screening is: [phone]. Narrative 09/01/2023 2:59 PM CDT BILATERAL FULL [...] Villegas MD LAB - BLOOD ORDERAB LES [facility] Organization Address City/State/ZIP Co de Phone Number LABORATORY [facility] Acute Care Lab [address] floor, [address] [place] [address], [facility] [phone] * DX Hip/Pelvis/Spine (06/26/2020 1:49 PM WELD FITTER) Anatomical Region Laterality Modality Dexa Bone Mineral Den sity Impressions 06/26/2020 3:52 PM WELD FITTER IMPRESSION: Normal bone mineral density. No statistically significant change in bone mineral density since 06/07/2017. ROSEANNE HOLDEN MD Narrative 06/26/2020 3:52 PM WELD FITTER DX HIP/PELVIS/SPINE ??06/26/2020 1:49 PM HISTORY: ??Osteopenia. FINDINGS: This DEXA scan was performed using a [employer] iDXA scanner. DEXA results are reported according to [...] This DEXA scan was performed using a [employer] iDXA scanner. DEXA results are reported according to [...] Performing Organization Information: ? [place] ? [facility] ? [address] [place] [address] ? Antonio V Jasvir, M.D. Erin Padron MD LAB - BLOOD ORDERAB LES Performing Organization Address City/[facility]/ZIP Co de Phone Number [facility] [address] [place] [address] * FOB (Fecal Occult Blood) ([facility]) (11/08/2013) Occult Blood NEG [facility] INTERNAL 11/08/2013 Erin Padron MD LABORATORY Performing Organization Address [facility] Co de Phone Number [facility] INTERNAL * ThinPrep Pap and HPV (mRNA E6/E7){HPV-REFLEX} ([facility]) (10/26/2013 10:07 AM CDT) Pathologist [facility] Clinical History P3 [facility] LMP [...] Comment Performing Organization Information: ? [place] ? [facility] ? [address] [place] [address] ? Antonio Tay M.D. Erin Padron MD LAB - NON-BEAKER NO N-BLOOD Performing Organization Address [facility] Co de Phone Number [facility] [address] [place] [address] * Hepatits C antibody ([facility]) (10/26/2013 10:06 AM CDT) HCV Antibody NON-REACTI VE NON-REACTI VE [facility] SIGNAL TO CUT OFF - [facility] 0.02 <1.00 [facility] Blood specimen (specimen) 10/26/2013 10:06 AM CDT 10/27/2013 2:07 AM CDT Narrative Resulting Agency Comment Performing Organization Information: ? CB ? [facility] ? [address] [place] [address] ? Antonio Tay M.D. Erin Padron MD LAB - BLOOD ORDERAB LES [facility] [address] [place] [address] * CT COLONOGRAPHY INC IMAGE PROCESS, SCREENING (12/06/2006) Anatomical Region Laterality Modality Other Provider Abstract GENERAL IMAGING from Last 3 Months or Most Recently Relevant to Health Maintenance Advance Directives For more information, please contact: [phone] * Full Code (Latest Code Status on File) Date Activated Date Inactivated Comments 03/09/2022 2:11 PM 03/10/2022 2:13 PM All basic and advanced life-sustaining interventions are performed as appropriate Question Answer Comments Code status determined by: Discussion with patie nt/ legal decision maker Care Teams Digital Sales Planner Relationship Specialty Start Date End Date Monica Perrin MD [address] [facility] [address] [place] [address] PCP - General manager asset 05/23/19
--- OUTSIDE RECORDS SUMMARY | 2023-10-05 13:47 | XMS_ITS | Encounter Summary ---
Author Organization [place] Address [address] [place] [address]. [place] [address] Care Team Providers Care Associate Director Name Role Phone Erin Padron MD Unavailable Unavailabl Melissa Dumont Unavailable [phone] Monica Perrin MD Primary Care Provider Encounter Details Date Type Department Care Team (Late st Contact Info) Description 04/01/2007 [facility] Medical Advice [facility] Physicians [address] [place] [address] [address] [place] [address] [facility] Social History Tobacco Use Types Packs/Day Years Used Date Smoking Tobacco: Never Alcohol Use Standard Drinks/Week Comments Yes 0 (1 standard drink = 0.6 oz pur e alcohol) occasionally Sex and Gender Information Value Date Recorded Sex Assigned at Female 02/27/2022 8:08 AM CDT Gender Identity Female 02/27/2022 8:08 AM CDT Sexual Orientation Not on file documented as of this encounter Plan of Treatment Not on file documented as of this encounter Visit Diagnoses Not on filedocumented in this encounter Care Teams Associate Director Relationship Specialty Start Date End Date Monica Perrin MD [address] [facility] [address] [place] [address] PCP - General executive chef 05/23/19 Erin Padron MD NO INFO AVAILABLE 12/08/22 Assigned PCP 10/29/17 11/17/18 [place] [address] [facility] [address] [place] [address] Assigned PCP 11/18/18 05/25/19 documented as of this encounter
--- OUTSIDE RECORDS SUMMARY | 2023-10-05 13:47 | XMS_ITS | Encounter Summary ---
Author Organization [place] Address [address] [place] [address]. [place] [address] Care Team Providers Care Solution Maker Name Role Phone Monica Perrin MD Primary Care Provider Reason for Referral * Diagnostic Imaging Mammo (Routine) - Pending Review Specialty Diagnoses / Procedures Referred By Jorge galdamez Referred To Contact Radiology. Diagnoses Visit for screening mammogram Procedures MA Screen Bilateral w/Monica Jimenez MD [address] [facility] [address] [place] [address] Referral ID Status Reason Start Date Expiration Date V isits Requested Visits Authorized [id number] Pending Review 08/07/2023 08/06/2024 1 1 Reason for Visit * Diagnostic Imaging Mammo (Routine) - Pending Review Specialty Diagnoses / Procedures Referred By Jorge galdamez Referred To Contact Radiology. Diagnoses Visit for screening mammogram Procedures MA Screen Bilateral w/Monica Jimenez MD [address] [facility] [address] [place] [address] Referral ID Status Reason Start Date Expiration Date V isits Requested Visits Authorized [id number] Pending Review 08/07/2023 08/06/2024 1 1 Encounter Details Date Type Department Care Team (Latest Contact Info) Description 09/01/2023 11:00 AM CDT - 09/01/2023 11:59 PM CDT Hospital Encounter [facility] [address] [facility], [address] [place] [address] Monica Perrin MD [address] [facility] [address] [place] [address] Visit for screening mammogram Discharge Disposition: Home or Self Care Social History Tobacco Use Types Packs/Day Years [...] on file documented as of this encounter Medications at Time of Discharge Medication Sig Dispensed Refills Start Date End Date acetaminophen (TYLENOL) 500 MG tablet Take 1,000 mg by mouth 2 times daily as needed for mild pain (500MG X 2 = 1,000MG) escitalopram (LEXAPRO) 10 MG tablet Take 10 mg by mouth daily fish oil-omega-3 fatty acids 1000 MG capsule Take 1 g by mouth daily hydrOXYzine (ATARAX) 10 MG tablet Take 1 tablet (10 mg) by mouth every 6 hours as needed for itching or anxiety (with pain, moderate pain) 30 tablet 03/09/2022 Magnesium Oxide 500 MG TABS Take 500 mg by mouth daily omeprazole (PRILOSEC) [address] capsule Take 20 mg by mouth daily oxyCODONE (ROXICODONE) 5 MG tablet Take 1-2 tablets (5-10 mg) by mouth every 4 hours as needed for moderate to severe pain 30 tablet 03/09/2022 senna-docusate (SENOKOT-S/PERICOLACE) 8.6-50 MG tablet Take 1-2 tablets by mouth 2 times daily Take while on oral narcotics to prevent or treat constipation. 30 tablet 03/09/2022 vitamin D3 (CHOLECALCIFEROL) 50 mcg (2000 units) tablet Take 1 tablet by mouth daily documented as of this encounter Plan of Treatment Not on file documented as of this encounter Procedures Procedure Name Priority Date/Time Associated Diagnosis Comments MA SCREENING BILATERAL W/ HERNANDO Routine 09/01/2023 12:29 PM CDT Visit for screening mammogram documented in this encounter Results * MA Screen Bilateral w/[place] (09/01/2023 [...] possible genetic testing and supplemental screening is: [phone]. Narrative 09/01/2023 2:59 PM CDT BILATERAL FULL FIELD DIGITAL SCREENING MAMMOGRAM WITH TOMOSYNTHESIS Performed on: 09/01/23 Compared to: 08/30/2022 and 06/07/2017 Technique: ??This study was evaluated with the assistance of Computer-Aided Detection. ??Breast Tomosynthesis was used in interpretation. Findings: The breasts are heterogeneously dense, which may obscure small masses. ??There is no radiographic evidence of malignancy. Monica Perrin MD IMG MAMMOGRAPHY SHELLI MOSHER documented in this encounter Visit Diagnoses Diagnosis Visit for screening mammogram Other screening mammogram documented in this encounter Care Teams Solution Maker Relationship Specialty Start Date End Date Monica Perrin MD [address] [place] [address] PCP - General editor magazine 05/23/19 documented as of this encounter
--- OUTSIDE RECORDS SUMMARY | 2023-10-05 13:47 | XMS_ITS | Encounter Summary ---
Author Organization [place] Address [address] [place] [address]. [place] [address] Care Team Providers Care Bus Driver Name Role Phone Monica Perrin MD Primary Care Provider [phone] Encounter Details Date Type Department Care Team (Latest Contact Info) Description 08/28/2023 Travel Social History Tobacco Use Types Packs/Day [...] on filedocumented in this encounter Care Teams Bus Driver Relationship Specialty Start Date End Date Monica Perrin MD [address] [place] [address] PCP - General genetic coordinator 05/23/19 documented as of this encounter
--- OUTSIDE RECORDS SUMMARY | 2023-10-05 13:48 | XMS_ITS | Encounter Summary ---
Author Organization [place] Address [address] [place] [address]. [place] [address] Care Team Providers Care Call Taker Name Role Phone Erin Padron MD Unavailable Unavailabl Melissa Dumont Unavailable [phone] Monica Perrin MD Primary Care Provider Encounter Details Date Type Department Care Team (Late st Contact Info) Description 09/11/2006 [facility] Medical Advice [facility] Physicians [address] [place] [address] [address] [place] [address] [facility] Social History Tobacco Use Types Packs/Day Years [...] on filedocumented in this encounter Care Teams Call Taker Relationship Specialty Start Date End Date Monica Perrin MD [address] [facility] [address] [place] [address] PCP - General nurse practitioner manager 05/23/19 Erin Padron MD NO INFO AVAILABLE 12/08/22 Assigned PCP 10/29/17 11/17/18 [place] [address] [facility] [address] [place] [address] Assigned PCP 11/18/18 05/25/19 documented as of this encounter
== END 2023-10-05 13:44 | disposition home or self-care (01) ==
PROVIDERS: PCP Internal Medicine; Visit Provider Internal Medicine
DX: R53.83 Other fatigue (principal); R53.81 Other malaise
CPT/HCPCS: 80053; 82607; 82728; 84443; 85045

== ENCOUNTER 2023-11-07 21:01 | Outpatient (CLI) | payer MEDICARE, OTHER, SELFPAY ==
--- OUTSIDE RECORDS SUMMARY | 2023-11-07 21:08 | XMS_ITS | Encounter Summary ---
Author Organization [place] Address [address] [place] [address]. [place] [address] Care Team Providers Care Magnetic Resonance Imaging Director Name Role Phone Monica Perrin MD Primary Care Provider Reason for Referral * Diagnostic Imaging Mammo (Routine) - Pending Review Specialty Diagnoses / Procedures Referred By Jorge galdamez Referred To Contact Radiology. Diagnoses Visit for screening mammogram Procedures MA Screen Bilateral w/Monica Jimenez MD [address] [place] [address] Referral ID Status Reason Start Date Expiration Date V isits Requested Visits Authorized [id number] Pending Review 08/07/2023 08/06/2024 1 1 Reason for Visit * Diagnostic Imaging Mammo (Routine) - Pending Review Specialty Diagnoses / Procedures Referred By Jorge galdamez Referred To Contact Radiology. Diagnoses Visit for screening mammogram Procedures MA Screen Bilateral w/Monica Jimenez MD [address] [place] [address] Referral ID Status Reason Start Date Expiration Date V isits Requested Visits Authorized [id number] Pending Review 08/07/2023 08/06/2024 1 1 Encounter Details Date Type Department Care Team (Latest Contact Info) Description 09/01/2023 11:00 AM CDT - 09/01/2023 11:59 PM CDT Hospital Encounter [facility] [address] [facility], [address] [place] [address] Monica Perrin MD [address] [facility] [address] [place] [address] Visit for screening mammogram Discharge Disposition: Home [...] possible genetic testing and supplemental screening is: [phone]. Narrative 09/01/2023 2:59 PM CDT BILATERAL FULL [...] mammogram documented in this encounter Care Teams Magnetic Resonance Imaging Director Relationship Specialty Start Date End Date Monica Perrin MD [address] [place] [address] PCP - General hired help 05/23/19 documented as of this encounter
--- OUTSIDE RECORDS SUMMARY | 2023-11-07 21:08 | XMS_ITS | Encounter Summary ---
Author Organization [place] Address [address] [place] [address] Care Team Providers Care Finisher Map And Chart Name Role Phone Erin Padron MD Unavailable Melissa Florentino PA-C Unavailable Monica Perrin MD Primary Care Provider [phone] Encounter Details Date Type Department Care Team (Late st Contact Info) Description 10/08/2015 MyC Medical Advice [facility] [address] [place] [address] [address] [place] [address] Erin Padron MD NO INFO [...] an Rx could you send it to [facility]? documented in this encounter Plan of Treatment Not on file documented as of this encounter Visit Diagnoses Not on filedocumented in this encounter Care Teams Finisher Map And Chart Relationship Specialty Start Date End Date Monica Perrin MD [address] [facility] [address] [place] [address] PCP - General tutor 05/23/19 Erin Padron MD NO INFO AVAILABLE 12/08/22 Assigned PCP 10/29/17 11/17/18 Melissa Guillen PA-C [facility] [address], [facility] [address] [place] [address] Assigned PCP 11/18/18 05/25/19 documented as of this encounter
--- OUTSIDE RECORDS SUMMARY | 2023-11-07 21:08 | XMS_ITS | Encounter Summary ---
Author Organization [place] Address [address] [place] [address]. [place] [address] Care Team Providers Care Area Coordinator Name Role Phone Monica Perrin MD Primary Care Provider [phone] Encounter Details Date Type Department Care Team [...] on filedocumented in this encounter Care Teams Area Coordinator Relationship Specialty Start Date End Date Monica Perrin MD [address] [place] [address] PCP - General geriatric assistant 05/23/19 documented as of this encounter
--- OUTSIDE RECORDS SUMMARY | 2023-11-07 21:08 | XMS_ITS | Encounter Summary ---
Author Organization [place] Address [address] [place] [address]. [place] [address] Care Team Providers Care Engraver Rubber Name Role Phone Erin Padron MD Unavailable UnavailMelissa Clemente PA-C Unavailable Monica Perrin MD Primary Care Provider [phone] Encounter Details Date Type Department Care Team (Late st Contact Info) Description 04/01/2007 [facility] Medical Advice [facility] [address] [place] [address] [address] [place] [phone] [facility] Social History Tobacco Use Types Packs/Day [...] on filedocumented in this encounter Care Teams Engraver Rubber Relationship Specialty Start Date End Date Monica Perrin MD [address] [facility] [address] [facility] [address] [place] [address] PCP - General wooden boat builder 05/23/19 Erin Padron MD NO INFO AVAILABLE 12/08/22 Assigned PCP 10/29/17 11/17/18 Melissa Guillen PA-C [facility] [address] [place] [address] Assigned PCP 11/18/18 05/25/19 documented as of this encounter
--- OUTSIDE RECORDS SUMMARY | 2023-11-07 21:08 | XMS_ITS | Encounter Summary ---
Author Organization [place] Address [address] [place] [address]. [place] [address] Care Team Providers Care Cut Filer Name Role Phone Erin Padron MD Unavailable [facility] e Melissa Guillen PA-C Unavailable Monica Perrin MD Primary Care Provider [phone] Reason for Visit * Reason Onset Date Comments MyChart Communication 06/06/2016 Encounter Details Date Type Department Care Team (Latest Contact Info) Description 06/06/2016 My[facility] Medical Advice [facility] [address] [place] [address] [address] [place] [address] Melissa Guillen PA-C [facility] [address] [facility] [address], [address] [place] [address] MyChart Communication Social History Tobacco [...] Melissa Guillen PA Sent: 06/06/2016 6:43 AM VINYL CUTTER Subject: Update on facial pain HI Melissa, I have been taking the Carbamazepine 200 MG bid for almost a week. Not much difference in my pain. I do have an appointment with Neurology on Jun 14. Any suggestions? Have a good week, Nikki Lind L CUTTER documented in this encounter Plan of Treatment Not on file documented as of this encounter Visit Diagnoses Not on filedocumented in this encounter Care Teams Cut Filer Relationship Specialty Start Date End Date Monica Perrin MD [address] [place] [address] PCP - General sales store checker 05/23/19 Erin Padron MD NO INFO AVAILABLE 12/08/22 Assigned PCP 10/29/17 11/17/18 Melissa Guillen PA-C [facility] [address] [place] [address] Assigned PCP 11/18/18 05/25/19 documented as of this encounter
--- OUTSIDE RECORDS SUMMARY | 2023-11-07 21:08 | XMS_ITS | Encounter Summary ---
Author Organization [place] Address [address] [place] [address]. [place] [address] Care Team Providers Care District Manager Postal Service Name Role Phone Erin Padron MD Unavailable UnavailMelissa Clemente PA-C Unavailable Monica Perrin MD Primary Care Provider Encounter Details Date Type Department Care Team (Late st Contact Info) Description 09/11/2006 [facility] Medical Advice [facility] [address] [place] [address] [address] [place] [phone] [facility] Social History Tobacco Use Types Packs/Day Years [...] on filedocumented in this encounter Care Teams District Manager Postal Service Relationship Specialty Start Date End Date Monica Perrin MD [address] [facility] [address] [facility] [address] [place] [address] PCP - General social services counselor 05/23/19 Erin Padron MD NO INFO AVAILABLE 12/08/22 Assigned PCP 10/29/17 11/17/18 Melissa Guillen PA-C [facility] [address] [place] [address] Assigned PCP 11/18/18 05/25/19 documented as of this encounter
--- OUTSIDE RECORDS SUMMARY | 2023-11-07 21:08 | XMS_ITS | Encounter Summary ---
Author Organization [place] Address [address] [place] [address]. [place] [address] Care Team Providers Care Shower Room Attendant Name Role Phone Monica Perrin MD Primary [...] on filedocumented in this encounter Care Teams Shower Room Attendant Relationship Specialty Start Date End Date Monica Perrin MD [address] [place] [address] PCP - General reducing salon attendant 05/23/19 documented as of this encounter
--- OUTSIDE RECORDS SUMMARY | 2023-11-07 21:08 | XMS_ITS | Clinical Summary ---
Author Organization [place] Address [address] [place] [address] Care Team Providers Care Fibreglass Gun Hand Name Role Phone Monica Perrin MD Primary Care Provider [phone] Allergies Active Allergy Reactions Criticality Noted Date [...] Active Problems Problem Noted Date Diagnosed Date ACP (advance care planning) 04/02/2012 Overview: Advance [...] Problem Noted Date Diagnosed Date Resolved Date Health Half-Way 04/02/2012 10/30/2023 Overview: State Tier Level: Tier 2 Status: NA Medicinal Chemist: See Letters for [facility] Care Plan Cataract 05/04/2010 10/24/2014 Overview: Utility update for [...] - 09/01/2023 11:59 PM CDT Hospital Encounter [facility] [address] [facility], [address] [place] [address] Monica Perrin MD Visit for [...] this topic Medical Devices Implanted Type Area Stock Checkerer Device Identifier Shelf Expiration Date Model / Serial / Lot Imp Scr Locking 4.5x26mm Aqls [id number] - [id number] Implanted:Qt y: 2 on 03/09/2022 by Richard Villegas MD at [facility] Metallic Hardware/An chor Left: Shoulder [employer] [id number] 03/08/20 22 Imp Scr Fixation 4.5x18mm Aqls [id number] - [id number] Implanted:Qt y: 1 on 03/09/2022 by Richard Villegas MD at [facility] Metallic Hardware/An chor Left: Shoulder [employer] [id number] 10 03/08/20 22 Imp Baseplate Shldr Glenoid Aqls Rev Ii 25mm [id number] - [id number] Implanted:Qt y: 1 on 03/09/2022 by Richard Villegas MD at [facility] Total Joint Component/I nsert Left: Shoulder [employer] [id number] 10/08/2025 [id number] / / [id number] Imp Comp Shldr Glenoid Sphere Aqls Rev Ii 31m88vg Vhj356 - [id number] Implanted:Qt y: 1 on 03/09/2022 by Richard Villegas MD at [facility] Total Joint Component/I nsert Left: Shoulder [employer] [id number] 01/03/2027 [id number] / [id number] / Stem Humeral Ptc Long 2b - [id number] Implanted:Qt y: 1 on 03/09/2022 by Richard Villegas MD at [facility] Total Joint Component/I nsert Left: Shoulder [employer] [id number] 04/16/2026 [id number] / [id number] / Tray Reverse Low Offset +0 Itc168 - [id number] Implanted:Qt y: 1 on 03/09/2022 by Richard Villegas MD at [facility] Total Joint Component/I nsert Left: Shoulder [employer] [id number] 01/18/2027 [id number] / [id number] / Insert Revision Reverse +10/24 36mm - [id number] Implanted:Qt y: 1 on 03/09/2022 by Richard Villegas MD at [facility] Total Joint Component/I nsert Left: Shoulder [employer] [id number] 10/19/2026 [id number] / [id number] / Procedures Procedure Name Priority Date/Time Associated Diagnosis Comments MA SCREENING BILATERAL W/ HERNANDO Routine 09/01/2023 12:29 PM CDT Visit for screening mammogram GLUCOSE Routine 03/10/2022 8:39 AM CDT DX BONE DENSITY Routine 06/26/2020 1:49 PM KEYBOARDING TEACHER Osteopenia COLONOSCOPY - HIM SCAN Routine 03/08/2016 [...] possible genetic testing and supplemental screening is: [phone]. Narrative 09/01/2023 2:59 PM CDT BILATERAL FULL [...] MD LAB - BLOOD ORDERAB LES LABORATORY [facility] [address] 1[address] floor, [address] [place] [address], [facility] [phone] * DX Hip/Pelvis/Spine (06/26/2020 1:49 PM KEYBOARDING TEACHER) Anatomical Region Laterality Modality Dexa Bone Mineral Den sity Impressions 06/26/2020 3:52 PM KEYBOARDING TEACHER IMPRESSION: Normal bone mineral density. No statistically significant change in bone mineral density since 06/07/2017. ROSEANNE HOLDEN MD Narrative 06/26/2020 3:52 PM KEYBOARDING TEACHER DX HIP/PELVIS/SPINE ??06/26/2020 1:49 PM HISTORY: ??Osteopenia. FINDINGS: This DEXA scan was performed using a [employer] iDXA scanner. DEXA results are reported according [...] This DEXA scan was performed using a [employer] iDXA scanner. DEXA results are reported according [...] Comment Performing Organization Information: ? CB ? [facility] ? [address] [facility] [place] [address] ? Antonio Tay M.D. Erin Padron MD LAB - BLOOD ORDERAB LES Performing Organization Address City/[facility]/ZIP Co de Phone Number [facility] [address] [place] [address] * FOB (Fecal Occult Blood) (BFP) (11/08/2013) Occult Blood NEG BFP INTERNAL 11/08/2013 Erin Padron MD LABORATORY Performing Organization Address [facility] Co de Phone Number BFP INTERNAL * [...] Diagnosis Negative for intraepithelial lesion or malignancy. [facility] Cytotechnologi st: ERP, CT(ASCP) [facility] Cervical swab (specimen) 10/26/2013 10:07 AM CDT 10/27/2013 3:50 AM CDT Narrative Resulting Agency Comment Performing Organization Information: ? [place] ? [facility] ? [address] [place] [address] ? Antonio Tay M.D. Erin Padron MD LAB - NON-BEAKER NO N-BLOOD Performing Organization Address [facility] Co de Phone Number [facility] [address] [place] [address] * Hepatits C antibody ([facility]) (10/26/2013 10:06 AM CDT) HCV Antibody NON-REACTI VE NON-REACTI VE [facility] SIGNAL TO CUT OFF - [facility] 0.02 <1.00 [facility] Blood specimen (specimen) 10/26/2013 10:06 AM CDT 10/27/2013 2:07 AM CDT Narrative Resulting Agency Comment Performing Organization Information: ? [place] ? [facility] ? [address] [place] [address] ? Antonio Tay M.D. Erin Padron MD LAB - BLOOD ORDERAB LES [facility] [address] [place] [address] * CT COLONOGRAPHY INC IMAGE PROCESS, SCREENING (12/06/2006) Anatomical Region Laterality Modality Other Provider Abstract GENERAL IMAGING from Last 3 Months or Most Recently Relevant to Health Maintenance Advance Directives For more information, please contact: [phone] * Full Code (Latest Code Status on File) Date Activated Date Inactivated Comments 03/09/2022 2:11 PM 03/10/2022 2:13 PM All basic and advanced life-sustaining interventions are performed as appropriate Question Answer Comments Code status determined by: Discussion with patie nt/ legal decision maker Care Teams Fibreglass Gun Hand Relationship Specialty Start Date End Date Monica Perrin MD [address] [facility] [address] [place] [address] PCP - General household appliance installer 05/23/19
--- OUTSIDE RECORDS SUMMARY | 2023-11-07 21:08 | XMS_ITS | Continuity of Care Document ---
Author Organization [facility] Address [address] [address] [place] [address] Phone Care Team Providers Care Cigar Bander Name Role Phone Mckinley Mtz MD Unavailable Unavailable Allergies, Adverse Reactions, Alerts Substance Reaction Status Criticality No Known Allergies Active No Inform ation Medications Medication Instructions Dosage Effective Dates (start - stop) Status Comments CALCIUM MAGNESIUM + D (unknown strength) take by Oral route every day Not Available - Active Vitamin D3 50 mcg (2,000 unit) tablet take 1 Tablet by Oral route every day 1 Tablet - Active TYLENOL (unknown strength) take 1 tablet by oral route every 4 hours as needed Not Available - Active [place] 3 350 mg- 400 mg capsule take 1 tablet by oral route every day - Active Procedures Procedure Date Colonoscopy Flex; Dx (sep Pro) 21 Colonoscopy Flex; W/bx 1/mx Level Iv-surg Path Gross/micro 16 Offic Cons New/estab Mod Colonoscopy Flex; Dx (sep Pro) 07 Advance Directives Directive Yes / No Effective Date File Name No Information Encounters Encounter Description Practice Location Reason(s) For Visit Diagnoses Date Provider Providers Copied on Encounter [facility], [address] [address], [place], [place], [id number], [place] tel:[phone] [facility] No Information 2 Bibi Sen. [address] [facility], [place], [place], [id number], [place]. tel:[phone] [facility], [address] [address], [place], [id number], [place] tel:[phone] [facility] Personal history of colonic polyps 2 Bibi Sen. [address] [facility], [address], [id number], [place]. [phone] [facility], [address] [address], [place], [id number], [place] tel:[phone] [facility] GI Symptoms or Concerns (chief complaint) Personal history of colonic polypsEncounter for screening for malignant neoplasm of colonPersonal history of colonic polyps 1 [address] Sen[address], [id number], [place]. tel:[phone] Referring Provider: Referral Self, USE FOR SELF REFERRALS. [facility], [address] [address], [place], [id number], [place] tel:[phone] [facility] [address] No Information 1 Harini Wesley. [address] [facility], [address], [id number], [place]. tel:[phone] [facility], [address] [address], [place], [id number], [place] tel:[phone] [facility] Colon polypBenign neoplasm of transverse colonHemorrhage of anus and rectum [address], [id number], [place]. tel:[phone] Referring Provider: Referral Self, USE FOR SELF REFERRALS. Offic Cons New/estab Mod [facility], [address] [address], [place], [id number], [place] tel:[phone] [facility] GI Symptoms or Concerns (chief complaint) Screening for colorectal cancerRectal bleedingElevated blood-pressure reading, w/o diagnosis of htn 6 Jan Koo. [address] [facility], [place] [address], [place], [place], [id number], [place]. tel:[phone] Referring Provider: Erin Lino, [address], [place], [address]. tel:[phone] [facility], [address] [address], [place], [place], [id number], [place] tel:[phone] [place] [facility] Colon Cancer Screening 7 No Information Referring Provider: Erin Padron MD J, [address], [place], [address]. tel:[phone] Family History Family Member Type Diagnosis Age At Onset Sister Problem (finding) malignant neoplasm of l cathy Father Problem (finding) alcoholism Sister Problem (finding) malignant neop lasm of breast in first degree relative Mother Problem (finding) malignant neop lasm of breast in first degree relative Brother Problem (finding) prostate cancer Father Problem (finding) Colon polyps Mother Problem (finding) alcoholism Immunizations Vaccine Date Status Comments Influenza administered Note: Moov cc.IC bi-d irectional interface ; Source: Other Registry SARS-COV-2 (COVID-19) vaccin e, mRNA, spike protein, LNP, preservative free, 30 mcg/0.3mL dose administered Note: MIIC bi-direct ional interface ; Source: Other Registry SARS-COV-2 (COVID-19) vaccin e, mRNA, spike protein, LNP, preservative free, 30 mcg/0.3mL dose administered Note: MIIC bi-direct ional interface ; Source: Other Registry SARS-COV-2 (COVID-19) vaccin e, mRNA, spike protein, LNP, preservative free, 30 mcg/0.3mL dose administered Note: MIIC bi-direct ional interface ; Source: Other Registry Influenza, seasonal, injecta ble, preservative free administered Note: MIIC bi-direct ional interface ; Source: Other Registry Hepatitis B vaccine (recombinant), CpG adjuvanted administered Note: MIIC bi-directional interface ; Source: Other Registry Hepatitis B vaccine (recombinant), CpG adjuvanted administered Note: MIIC bi-directional interface ; Source: Other Registry zoster vaccine recombinant administered N ote: MIIC bi-directional interface ; Source: Other Registry zoster vaccine recombinant administered N ote: MIIC bi-directional interface ; Source: Other Registry seasonal influenza, intrader mal, preservative free administered Note: MIIC bi-direct ional interface ; Source: Other Registry tetanus toxoid, reduced diphtheria toxoid, and acellular pertussis vaccine, adsorbed administered Note: MIIC b i-directional interface ; Source: Other Registry seasonal influenza, intrader mal, preservative free administered Note: MIIC bi-direct ional interface ; Source: Other Registry Novel [id number], all formulations administered Note: MIIC bi-direct ional interface ; Source: Other Registry Havrix administered Note: MIIC bi-d irectional interface ; Source: Other Registry Payers Payer name Insurance type Covered green party ID Zen graham(s) [employer] [id number] Social History Type Description Quantity Date Captured Comments Alcohol Use Details Unknown Caffeine Use Details Unknown Tobacco Use Status No Information Smoking Status No Information Sex Female Chief Complaint And Reason For Visit No Information Reason For Referral Reason For Referral No Information Plan Of Treatment Date Type Action Status Referral Ordered: CT Colography Appointment date/timeframe: 04/21/2021 ordered Referral Ordered: Colonoscopy Appointment date/timeframe: -today ordered History Of Present Illness Encounter Date Complaint History Of Prese nt Illness GI Symptoms or Concerns GI Symptoms or Concerns The symp toms began 41 years ago. The symptoms are reported as being mild. The symptoms occur randomly. The location is perianal. Aggravating factors include large hard stool. Relieving factors include nothing. She states the symptoms are chronic and are fairly controlled. Patient is a 60-year-old female, who is here for colorectal cancer screening and rectal bleeding. Patient reports that her last colonoscopy was in 2006 and was incomplete to the ascending colon and she subsequently had a CT colonography that was negative. Patient is here to discuss whether she should have a Cologuard versus a colonoscopy. Patient also reports that since age 19, she has had intermittent rectal bleeding, which she attributes to intermittent anal fissures. She does not report an anal fissure at this time. She reports that this usually occurs after she passes a large hard stool. Patient denies any GI symptoms at this time. Functional Status Date Functional Assessmen t No Information Instructions Date Instruction Additional Infor jacob Colon Cancer Prevention Related to Colon polyp Colon Polyps Related to Colon polyp -Fiber, stool soften ers, miralax to prevent large hard stools from causing anal fissures-Sitz baths if develops recurrent anal kifygiff-Rmiyjg-xp here as needed Related to Rectal bleeding -Colonoscopy Related to Juanito smith for colorectal cancer Assessments Type Assessment Date No Information Patient Care Teams Name Effective Dates (start - stop) Status Members No Information
--- OUTSIDE RECORDS SUMMARY | 2023-11-07 21:08 | XMS_ITS | Encounter Summary ---
Author Organization [facility] Address [address] [place] [address]. [place] [address] Care Team Providers Care Cattle Producers Name Role Phone Monica Perrin MD Primary Care Provider [phone] Encounter Details Date Type Department Care Team (Late st Contact Info) Description 02/22/2022 Orders Only [facility] Centralized Scheduling [address] [place] [address] Jarrett Fiore MD [address] [place] [address] Encounter for laboratory testing for COVID-19 virus [...] the Xpert Xpress SARS-CoV-2 Assay on the [employer]. Additional information about this Emergency [...] COVID-19. This test was validated by the [facility]. This laboratory is certified under the Clinical Laboratory Improvement Amendments of 1988 (CLIA-88) as qualified to perform high complexity laboratory testing. Jarrett Fiore MD LAB - MICRO GENERAL ORDERABLES [facility] Inf. Diseases Diag. Lab [address] [facility], [address] [place] [address], [facility] [phone] documented in this encounter Visit Diagnoses Diagnosis Encounter for laboratory testing for COVID-19 virus documented in this encounter Care Teams Cattle Producers Relationship Specialty Start Date End Date Monica Perrin MD [address] [facility] [address] [place] [address] PCP - General convex grinder 05/23/19 documented as of this encounter
--- OUTSIDE RECORDS SUMMARY | 2023-11-07 21:08 | XMS_ITS | Encounter Summary ---
Author Organization [place] Address [address] [place] [address]. [place] [address] Care Team Providers Care Cloth Drier Name Role Phone Monica Perrin MD Primary [...] on filedocumented in this encounter Care Teams Cloth Drier Relationship Specialty Start Date End Date Monica Perrin MD [address] [place] [address] PCP - General airfield manager 05/23/19 documented as of this encounter
--- OUTSIDE RECORDS SUMMARY | 2023-11-07 21:08 | XMS_ITS | Encounter Summary ---
Author Organization [place] Address [address] [place] [address]. [place] [address] Care Team Providers Care Vegetable Loader Machine Operator Name Role Phone Erin Padron MD Unavailable Unavailabl e Melissa Guillen PA-C Unavailable Monica Perrin MD Primary Care Provider Reason for Visit * Reason Comments Medication Refill Encounter Details Date Type Department Care Team (Late st Contact Info) Description 01/06/2016 Refill [facility] [address] [place] [phone] Melissa Guillen PA-C [facility] [address] [facility] [address], [facility] [address] [place], [place] [address] Medication Refill Social History Tobacco Use Types [...] on filedocumented in this encounter Care Teams Vegetable Loader Machine Operator Relationship Specialty Start Date End Date Monica Perrin MD [address] [place], [place] [address] PCP - General electric sign assembler 05/23/19 Erin Padron MD NO INFO AVAILABLE 12/08/22 Assigned PCP 10/29/17 11/17/18 Melissa Guillen PA-C [facility] [address] [place], [place] [address] Assigned PCP 11/18/18 05/25/19 documented as of this encounter
--- OUTSIDE RECORDS SUMMARY | 2023-11-07 21:08 | XMS_ITS | Referral Summary ---
Author Organization [place] Address [address] [place] [address] Care Team Providers Care Rn Mobile Name Role Phone Monica Perrin MD Primary Care Provider [phone] Encounters Date Type Department Care Team Description 09/01/2023 Travel 09/01/2023 11:00 AM CDT - 09/01/2023 11:59 PM CDT Hospital Encounter [facility] [address], [address] [place] [address] Monica Perrin MD Visit for [...] Noted Date Diagnosed Date Resolved Date Health Mcc 04/02/2012 10/30/2023 Overview: State Tier Level: Tier 2 Status: NA Television Writer: See Letters for [facility] Care Plan Cataract 05/04/2010 10/24/2014 Overview: Utility [...] on file Medical Devices Implanted Type Area Corporate Traffic Manager Device Identifier Shelf Expiration Date Model / Serial / Lot Imp Scr Locking 4.5x26mm Aqls [id number] - [id number] Implanted:Qt y: 2 on 03/09/2022 by Richard Villegas MD at [facility] Metallic Hardware/An chor Left: Shoulder [employer] [id number] / / 42 10 03/08/20 22 Imp Scr Fixation 4.5x18mm Aqls Vzj187 - [id number] Implanted:Qt y: 1 on 03/09/2022 by Richard Villegas MD at [facility] Metallic Hardware/An chor Left: Shoulder [employer] [id number] / / 42 10 03/08/20 22 Imp Baseplate Shldr Glenoid Aqls Rev Ii 25mm [id number] - [id number] Implanted:Qt y: 1 on 03/09/2022 by Richard Villegas MD at [facility] Total Joint Component/I nsert Left: Shoulder [employer] [id number] 10/08/2025 RWT229 / / [id number] Imp Comp Shldr Glenoid Sphere Aqls Rev Ii 86l85cm Svd140 - [id number] Implanted:Qt y: 1 on 03/09/2022 by Richard Villegas MD at [facility] Total Joint Component/I nsert Left: Shoulder [employer] [id number] 01/03/2027 [id number] / [id number] / Stem Humeral Ptc Long 2b - [id number] Implanted:Qt y: 1 on 03/09/2022 by Richard Villegas MD at [facility] Total Joint Component/I nsert Left: Shoulder [employer] [id number] 04/16/2026 [id number] / [id number] / Tray Reverse Low Offset +0 Ngg286 - [id number] Implanted:Qt y: 1 on 03/09/2022 by Richard Villegas MD at [facility] Total Joint Component/I nsert Left: Shoulder [employer] [id number] 01/18/2027 RYW305 / [id number] / Insert Revision Reverse +10/24 36mm - [id number] Implanted:Qt y: 1 on 03/09/2022 by Richard Villegas MD at [facility] Total Joint Component/I nsert Left: Shoulder [employer] [id number] 10/19/2026 [id number] / [id number] 2 / Procedures Procedure Name Priority Date/Time Associated Diagnosis Comments MA SCREENING BILATERAL W/ HERNANDO Routine 09/01/2023 12:29 PM CDT Visit for screening mammogram GLUCOSE Routine 03/10/2022 8:39 AM CDT DX BONE DENSITY Routine 06/26/2020 1:49 PM CEREAL MILLER Osteopenia COLONOSCOPY - HIM SCAN Routine 03/08/2016 [...] possible genetic testing and supplemental screening is: [phone]. Narrative 09/01/2023 2:59 PM CDT BILATERAL FULL [...] LES LABORATORY [facility] [address] 1[address] floor, [address] [place] [address], [facility] [phone] * DX Hip/Pelvis/Spine (06/26/2020 1:49 PM CEREAL MILLER) Anatomical Region Laterality Modality Dexa Bone Mineral Den sity Impressions 06/26/2020 3:52 PM CEREAL MILLER IMPRESSION: Normal bone mineral density. No statistically significant change in bone mineral density since 06/07/2017. ROSEANNE HOLDEN MD Narrative 06/26/2020 3:52 PM CEREAL MILLER DX HIP/PELVIS/SPINE ??06/26/2020 1:49 PM HISTORY: ??Osteopenia. FINDINGS: This DEXA scan was performed using a Instantis scanner. DEXA results are reported according to [...] This DEXA scan was performed using a Instantis scanner. DEXA results are reported according to [...] Comment Performing Organization Information: ? CB ? [facility] ? [address] [place] [address] ? Antonio Tay M.D. Erin Padron MD LAB - BLOOD ORDERAB LES [facility] [address] [facility] [place] [address] * FOB (Fecal Occult Blood) (BFP) (11/08/2013) [...] Performing Organization Information: ? [place] ? [facility] ? [address] [place] [address] ? Antonio Tay M.D. Erin Padron MD LAB - NON-BEAKER NO N-BLOOD Performing Organization Address [facility] de Phone Number [facility] [address] [place] [address] * Hepatits C antibody ([facility]) (10/26/2013 10:06 AM CDT) HCV Antibody NON-REACTI VE NON-REACTI VE [facility] SIGNAL TO CUT OFF - [facility] 0.02 <1.00 [facility] Blood specimen (specimen) 10/26/2013 10:06 AM CDT 10/27/2013 2:07 AM CDT Narrative Resulting Agency Comment Performing Organization Information: ? CB ? [facility] ? [address] [place] [address] ? Antonio Tay M.D. Erin Padron MD LAB - BLOOD ORDERAB LES Performing Organization Address City/[facility] Co de Phone Number [facility] [address] [place] [address] * CT COLONOGRAPHY INC IMAGE PROCESS, SCREENING (12/06/2006) Anatomical Region Laterality Modality Other Provider Abstract GENERAL IMAGING from Last 3 Months or Most Recently Relevant to Health Maintenance Advance Directives For more information, please contact: [phone] * Full Code (Latest Code Status on File) Date Activated Date Inactivated Comments 03/09/2022 2:11 PM 03/10/2022 2:13 PM All basic and advanced life-sustaining interventions are performed as appropriate Question Answer Comments Code status determined by: Discussion with nanci nt/ legal decision maker Care Teams Rn Mobile Relationship Specialty Start Date End Date Monica Perrin MD [address] [place] [id number] PCP - General unloader 05/23/19
--- OUTSIDE RECORDS SUMMARY | 2023-11-07 21:08 | XMS_ITS | Encounter Summary ---
Author Organization [place] Address [address] [place] [address]. [place] [address] Care Team Providers Care Doctor Of Podiatric Medicine Name Role Phone Erin Padron MD Unavailable UnavailMelissa Clemente PA-C Unavailable Monica Perrin MD Primary Care Provider Encounter Details Date Type Department Care Team (Late st Contact Info) Description 08/14/2006 [facility] Medical Advice [facility] [address] [place] [address] [address] [place] [id number] [facility] Social History Tobacco Use Types Packs/Day Years [...] on filedocumented in this encounter Care Teams Doctor Of Podiatric Medicine Relationship Specialty Start Date End Date Monica Perrin MD [address] [facility] [address] [place] [address] PCP - General report clerk 05/23/19 Erin Padron MD NO INFO AVAILABLE 12/08/22 Assigned PCP 10/29/17 11/17/18 Melissa Guillen PA-C [facility] [address] [place] [address] Assigned PCP 11/18/18 05/25/19 documented as of this encounter
== END 2023-11-07 21:02 | disposition home or self-care (01) ==
LOC: SLEEP 21:06
PROVIDERS: PCP Internal Medicine; Visit Provider Internal Medicine
DX: G47.33 Obstructive sleep apnea (adult) (pediatric) (principal)
CPT/HCPCS: 95810

== ENCOUNTER 2024-01-10 10:54 | Outpatient (CLI) | payer MEDICARE, OTHER, SELFPAY ==
--- OUTSIDE RECORDS SUMMARY | 2024-01-11 10:55 | XMS_ITS | Clinical Summary ---
Author Organization [place] Address [address] [place] [address] Care Team Providers Care Industrial Cook Name Role Phone Monica Perrin MD Primary Care Provider [phone] Allergies Active Allergy Reactions Criticality Noted Date [...] Noted Date Diagnosed Date Resolved Date Health Intermediate 04/02/2012 10/30/2023 Overview: State Tier Level: Tier 2 Status: NA Mercerizing Range Controller: See Letters for [facility] Care Plan Cataract 05/04/2010 10/24/2014 Overview: Utility [...] 10/26/2013 , 04/02/2012, 04/02/2012 LIPID 11/17/2020 11/18/2015, 07/0 05/2014, 10/26/2013, Additional history exists FALL RISK ASSESSMENT 2021 MEDICARE ANNUAL WELLNESS VISIT 2021 11/18/2015, 11/12/2014, 10/26/2013, Additional history exists DTAP/TDAP/TD IMMUNIZATION (2 - Td or Tdap) 10/04/2021 10/05/2011, 06/20/2003, 06/06/1989 COVID-19 Vaccine ( season) 2023 02/08/2022, 11/18/2021, 02/10/2021, Additional history exists PHQ-2 (once per calendar year) 2023 INFLUENZA VACCINE (#1) 2024 , 02/14/2022, 03/09/2021, Additional history exists GLUCOSE 03/10/2025 03/10/2022, 11/12/2014 MAMMO SCREENING 08/31/2025 09/01/2023, 08/13, 07/07/2021, Additional history exists COLONOSCOPY 03/08/2026 03/08/2016, 11/30/2006 COLORECTAL CANCER SCREENING 03/08/2026 DEXA 06/26/2035 06/26/2020, 05/16, 07/13/2007 HEPATITIS C SCREENING Completed 10/26/2013 PAP Discontinued 10/26/2013, 09/13, 09/10/2009, Additional history exists ZOSTER IMMUNIZATION Completed 07/14/2017, 7 Pneumococcal Vaccine: 65+ Years Completed 02/01/2022 HPV IMMUNIZATION Aged Out No longer e ligible based on patient's age to complete this topic MENINGITIS IMMUNIZATION Aged Out No l onger eligible based on patient's age to complete this topic RSV MONOCLONAL ANTIBODY Aged Out No l onger eligible based on patient's age to complete this topic Medical Devices Implanted Type Area Recreation Coordinator Device Identifier Shelf Expiration Date Model / Serial / Lot Imp Scr Locking 4.5x26mm Aqls Dzr316 - [id number] Implanted:Qt y: 2 on 03/09/2022 by Richard Villegas MD at [facility] Metallic Hardware/An chor Left: Shoulder [employer] [id number] 03/08/20 22 Imp Scr Fixation 4.5x18mm Aqls Dga083 - [id number] Implanted:Qt y: 1 on 03/09/2022 by Richard Villegas MD at [facility] Metallic Hardware/An chor Left: Shoulder [employer] [id number] 10 03/08/20 22 Imp Baseplate Shldr Glenoid Aqls Rev Ii 25mm Oak621 - [id number] Implanted:Qt y: 1 on 03/09/2022 by Richard Villegas MD at [facility] Total Joint Component/I nsert Left: Shoulder [employer] [id number] 10/08/2025 [id number] / / [id number] Imp Comp Shldr Glenoid Sphere Aqls Rev Ii 70r01hn Bbh047 - [id number] Implanted:Qt y: 1 on 03/09/2022 by Richard Villegas MD at [facility] Total Joint Component/I nsert Left: Shoulder [employer] [id number] 01/03/2027 MBT020 / [id number] 0 / Stem Humeral Ptc Long 2b - [id number] Implanted:Qt y: 1 on 03/09/2022 by Richard Villegas MD at [facility] Total Joint Component/I nsert Left: Shoulder [employer] [id number] 04/16/2026 [id number] / [id number] 9001 / Tray Reverse Low Offset +0 Nrj436 - [id number] Implanted:Qt y: 1 on 03/09/2022 by Richard Villegas MD at [facility] Total Joint Component/I nsert Left: Shoulder [employer] [id number] 01/18/2027 ERS603 / [id number] 9 / Insert Revision Reverse +10/24 36mm - [id number] Implanted:Qt y: 1 on 03/09/2022 by Richard Villegas MD at [facility] Total Joint Component/I nsert Left: Shoulder [employer] [id number] 10/19/2026 [id number] / [id number] 2 / Procedures Procedure Name Priority Date/Time Associated Diagnosis Comments MA SCREENING BILATERAL W/ HERNANDO Routine 09/01/2023 12:29 PM CDT Visit for screening mammogram GLUCOSE Routine 03/10/2022 8:39 AM CDT DX BONE DENSITY Routine 06/26/2020 1:49 PM LABORER PETROLEUM REFINERY Osteopenia COLONOSCOPY - HIM SCAN Routine 03/08/2016 [...] possible genetic testing and supplemental screening is: [phone]. Narrative 09/01/2023 2:59 PM CDT BILATERAL FULL FIELD DIGITAL SCREENING MAMMOGRAM WITH TOMOSYNTHESIS Performed on: 09/01/23 Compared to: 08/30/2022 and 06/07/2017 Technique: ??This study was evaluated with the assistance of Computer-Aided Detection. ??Breast Tomosynthesis was used in interpretation. Findings: The breasts are heterogeneously dense, which may obscure small masses. ??There is no radiographic evidence of malignancy. Monica Perrin MD IMG MAMMOGRAPHY ORDE NOMI * (ABNORMAL) Glucose (03/10/2022 8:39 AM CDT) Pathologist [facility] Glucose 116(H) 70 - 99 mg/dL 03/10/2022 9:19 AM CDT LABORATORY Patient Fasting > 8hrs? Unknown 03/10/2022 9:19 AM CDT LABORATORY Blood STRUCTURE OF RIGHT UPPER LIMB / Unknown Venipuncture / Unknown 03/10/2022 8:39 AM CDT 03/10/2022 8:51 AM CDT Richard Villegas MD LAB - BLOOD ORDERAB LES LABORATORY [facility] Acute Care Lab [address] 1[address] floor, [address] [place] [address], [facility] [phone] * DX Hip/Pelvis/Spine (06/26/2020 1:49 PM LABORER PETROLEUM REFINERY) Anatomical Region Laterality Modality Dexa Bone Mineral Den sity Impressions 06/26/2020 3:52 PM LABORER PETROLEUM REFINERY IMPRESSION: Normal bone mineral density. No statistically significant change in bone mineral density since 06/07/2017. ROSEANNE HOLDEN MD Narrative 06/26/2020 3:52 PM LABORER PETROLEUM REFINERY DX HIP/PELVIS/SPINE ??06/26/2020 1:49 PM HISTORY: ??Osteopenia. FINDINGS: This DEXA scan was performed using a Linebacker scanner. DEXA results are reported according to [...] This DEXA scan was performed using a Linebacker scanner. DEXA results are reported according to [...] Comment Performing Organization Information: ? CB ? [facility] ? [address] [place] [address] ? Antonio Tay M.D. Erin Padron MD LAB - BLOOD ORDERAB LES [facility] [address] [place] [address] * FOB (Fecal Occult Blood) (BFP) (11/08/2013) [...] Performing Organization Information: ? [place] ? [facility] ? [address] [place] [address] ? Antonio Tay M.D. Erin Padron MD LAB - NON-BEAKER NO N-BLOOD [facility] [address] [place] [address] * Hepatits C antibody ([facility]) (10/26/2013 10:06 AM CDT) HCV Antibody NON-REACTI VE NON-REACTI VE [facility] SIGNAL TO CUT OFF - [facility] 0.02 <1.00 [facility] Blood specimen (specimen) 10/26/2013 10:06 AM CDT 10/27/2013 2:07 AM CDT Narrative Resulting Agency Comment Performing Organization Information: ? CB ? [facility] ? [address] [place] [address] ? Antonio Tay M.D. Erin Padron MD LAB - BLOOD ORDERAB LES [facility] [address] [place] [address] * CT COLONOGRAPHY INC IMAGE PROCESS, SCREENING (12/06/2006) Anatomical Region Laterality Modality Other Provider Abstract GENERAL IMAGING from Last 3 Months or Most Recently Relevant to Health Maintenance Advance Directives For more information, please contact: [phone] * Full Code (Latest Code Status on File) Date Activated Date Inactivated Comments 03/09/2022 2:11 PM 03/10/2022 2:13 PM All basic and advanced life-sustaining interventions are performed as appropriate Question Answer Comments Code status determined by: Discussion with patijennifer nt/ legal decision maker Care Teams Industrial Cook Relationship Specialty Start Date End Date Monica Perrin MD [address] [place] [address] PCP - General concrete vault maker 05/23/19
--- OUTSIDE RECORDS SUMMARY | 2024-01-11 10:55 | XMS_ITS | Referral Summary ---
Author Organization [place] Address [address] [place] [address] Care Team Providers Care Spinner Concrete Pipe Name Role Phone Monica Perrin MD Primary Care Provider [phone] Allergies Active Allergy Reactions Criticality Noted Date [...] Noted Date Diagnosed Date Resolved Date Health Alf 04/02/2012 10/30/2023 Overview: State Tier Level: Tier 2 Status: NA Patient Registration Specialist: See Letters for [facility] Care Plan Cataract 05/04/2010 10/24/2014 Overview: [...] on file Medical Devices Implanted Type Area Puddler Helper Device Identifier Shelf Expiration Date Model / Serial / Lot Imp Scr Locking 4.5x26mm Aqls Sfn615 - [id number] Implanted:Qt y: 2 on 03/09/2022 by Richard Villegas MD at [facility] Metallic Hardware/An chor Left: Shoulder [employer] [id number] 03/08/20 22 Imp Scr Fixation 4.5x18mm Aqls Ljh206 - [id number] Implanted:Qt y: 1 on 03/09/2022 by Richard Villegas MD at [facility] Metallic Hardware/An chor Left: Shoulder [employer] [id number] 03/08/20 22 Imp Baseplate Shldr Glenoid Aqls Rev Ii 25mm Crt867 - [id number] Implanted:Qt y: 1 on 03/09/2022 by Richard Villegas MD at [facility] Total Joint Component/I nsert Left: Shoulder [employer] INC [id number] 10/08/2025 OQM145 / / [id number] Imp Comp Shldr Glenoid Sphere Aqls Rev Ii 02b84cw Tgk910 - [id number] Implanted:Qt y: 1 on 03/09/2022 by Richard Villegas MD at [facility] Total Joint Component/I nsert Left: Shoulder [employer] INC [id number] 01/03/2027 CUI839 / [id number] 0 / Stem Humeral Ptc Long 2b - [id number] Implanted:Qt y: 1 on 03/09/2022 by Richard Villegas MD at [facility] Total Joint Component/I nsert Left: Shoulder [employer] INC [id number] 04/16/2026 [id number] / [id number] / Tray Reverse Low Offset +0 Aqe213 - [id number] Implanted:Qt y: 1 on 03/09/2022 by Richard Villegas MD at [facility] Total Joint Component/I nsert Left: Shoulder [employer] INC [id number] 01/18/2027 OAJ667 / [id number] 9 / Insert Revision Reverse +10/24 36mm - [id number] Implanted:Qt y: 1 on 03/09/2022 by Richard Villegas MD at [facility] Total Joint Component/I nsert Left: Shoulder [employer]ER INC [id number] 10/19/2026 [id number] / [id number] 2 / Procedures Procedure Name Priority Date/Time Associated Diagnosis Comments MA SCREENING BILATERAL W/ HERNANDO Routine 09/01/2023 12:29 PM CDT Visit for screening mammogram GLUCOSE Routine 03/10/2022 8:39 AM CDT DX BONE DENSITY Routine 06/26/2020 1:49 PM CREDIT RATING CHECKER Osteopenia COLONOSCOPY - HIM SCAN Routine 03/08/2016 [...] possible genetic testing and supplemental screening is: [phone]. Narrative 09/01/2023 2:59 PM CDT BILATERAL FULL [...] MD LAB - BLOOD ORDERAB LES LABORATORY [facility] [address] 1[address], [address] [place] [address], [facility] [phone] * DX Hip/Pelvis/Spine (06/26/2020 1:49 PM CREDIT RATING CHECKER) Anatomical Region Laterality Modality Dexa Bone Mineral Den sity Impressions 06/26/2020 3:52 PM CREDIT RATING CHECKER IMPRESSION: Normal bone mineral density. No statistically significant change in bone mineral density since 06/07/2017. ROSEANNE HOLDEN MD Narrative 06/26/2020 3:52 PM CREDIT RATING CHECKER DX HIP/PELVIS/SPINE ??06/26/2020 1:49 PM HISTORY: ??Osteopenia. FINDINGS: This DEXA scan was performed using a Xinguodu scanner. DEXA results are reported according to [...] This DEXA scan was performed using a Xinguodu scanner. DEXA results are reported according to [...] Lipid Profile ([facility]) (11/18/2015 4:14 PM CDT) Pathologist [facility] Cholesterol 207(H) 125 - 200 mg/dL [facility] [...] Comment Performing Organization Information: ? CB ? [facility] ? [address] [place] [address] ? Antonio Tay M.D. Erin Padron MD LAB - BLOOD ORDERAB LES Performing Organization Address City/[facility] [address]/ZIP Co de Phone Number [facility] [address] [place] [address] * FOB (Fecal Occult Blood) (BFP) (11/08/2013) Occult Blood NEG BFP INTERNAL 11/08/2013 Erin Padron MD LABORATORY Performing Organization Address City/[facility] [address]/ZIP Co de Phone Number BFP INTERNAL * [...] Diagnosis Negative for intraepithelial lesion or malignancy. [facility] Cytotechnologi st: ERP, CT(ASCP) [facility] Cervical swab (specimen) 10/26/2013 10:07 AM CDT 10/27/2013 3:50 AM CDT Narrative Resulting Agency Comment Performing Organization Information: ? [place] ? [facility] ? [address] [place] [address] ? Antonio Tay M.D. Erin Padron MD LAB - NON-BEAKER NO N-BLOOD Performing Organization Address [facility] [address]/[facility] de Phone Number [facility] [address] [place] [address] * Hepatits C antibody ([facility]) (10/26/2013 10:06 AM CDT) HCV Antibody NON-REACTI VE NON-REACTI VE [facility] SIGNAL TO CUT OFF - [facility] 0.02 <1.00 [facility] Blood specimen (specimen) 10/26/2013 10:06 AM CDT 10/27/2013 2:07 AM CDT Narrative Resulting Agency Comment Performing Organization Information: ? CB ? [facility] ? [address] [place] [address] ? Antonio Tay M.D. Erin Padron MD LAB - BLOOD ORDERAB LES Performing Organization Address City/[facility] [address]/[facility] Co de Phone Number [facility] [address] [place] [address] * CT COLONOGRAPHY INC IMAGE PROCESS, SCREENING (12/06/2006) Anatomical Region Laterality Modality Other Provider Abstract GENERAL IMAGING from Last 3 Months or Most Recently Relevant to Health Maintenance Advance Directives For more information, please contact: [phone] * Full Code (Latest Code Status on File) Date Activated Date Inactivated Comments 03/09/2022 2:11 PM 03/10/2022 2:13 PM All basic and advanced life-sustaining interventions are performed as appropriate Question Answer Comments Code status determined by: Discussion with nanci goodwin/ legal decision maker Care Teams Spinner Concrete Pipe Relationship Specialty Start Date End Date Monica Perrin MD [address] [place] [address] PCP - General cisco consultant 05/23/19
--- OUTSIDE RECORDS SUMMARY | 2024-01-11 10:56 | XMS_ITS | Encounter Summary ---
Author Organization [facility] Address [address] [place] [address]. [place] [address] Care Team Providers Care Gas Leak Inspector Helper Name Role Phone Erin Padron MD [facility]available [facility] Melissa Dumont PA-C Unavailable Monica Perrin MD Primary Care Provider Reason for Visit * Reason Onset Date Comments MyChart Communication 06/06/2016 Encounter Details Date Type Department Care Team (Latest Contact Info) Description 06/06/2016 MyC Medical Advice [facility] [address] [place] [address] [address] [place] [address] Melissa Guillen PA-C [facility] [address] [facility], [facility] [address] [place] [address] MyChart Communication Social History Tobacco [...] Melissa Guillen PA Sent: 06/06/2016 6:43 AM METAL FURNITURE ASSEMBLY SUPERVISOR Subject: Update on facial pain HI Melissa, I have been taking the Carbamazepine 200 MG bid for almost a week. Not much difference in my pain. I do have an appointment with Neurology on Jun 14. Any suggestions? Have a good week, Nikki Lind L FURNITURE ASSEMBLY SUPERVISOR documented in this encounter Plan of Treatment Not on file documented as of this encounter Visit Diagnoses Not on filedocumented in this encounter Care Teams Gas Leak Inspector Helper Relationship Specialty Start Date End Date Monica Perrin MD [address] [place] [address] PCP - General guide changer 05/23/19 Erin Padron MD NO INFO AVAILABLE 12/08/22 Assigned PCP 10/29/17 11/17/18 Melissa Guillen PA-C [facility] [address] [place] [address] Assigned PCP 11/18/18 05/25/19 documented as of this encounter
--- OUTSIDE RECORDS SUMMARY | 2024-01-11 10:56 | XMS_ITS | Encounter Summary ---
Author Organization [facility] Address [address] [place] [address] Care Team Providers Care Telephonic Nurse Name Role Phone Erin Padron MD Unavailable Melissa Florentino PA-C Unavailable Monica Perrin MD Primary Care Provider Encounter Details Date Type Department Care Team (Late st Contact Info) Description 10/08/2015 [facility] Medical Advice [facility] [address] [place] [address] [address] [place] [address] Erin Padron MD NO INFO [...] an Rx could you send it to [facility]? documented in this encounter Plan of Treatment Not on file documented as of this encounter Visit Diagnoses Not on filedocumented in this encounter Care Teams Telephonic Nurse Relationship Specialty Start Date End Date Monica Perrin MD [address] [facility] [address] [place] [address] PCP - General package car driver 05/23/19 Erin Padron MD NO INFO AVAILABLE 12/08/22 Assigned PCP 10/29/17 11/17/18 Melissa Guillen PA-C [facility] [address], [facility] [address] [place] [address] Assigned PCP 11/18/18 05/25/19 documented as of this encounter
--- OUTSIDE RECORDS SUMMARY | 2024-01-11 10:56 | XMS_ITS | Encounter Summary ---
Author Organization [facility] Address [address] [place] [address]. [place] [address] Care Team Providers Care Associate Dentist Name Role Phone Erin Padron MD Unavailable Unavailabl e Melissa Guillen PA-C Unavailable Monica Perrin MD Primary Care Provider [phone] Reason for Visit * Reason Comments Medication Refill Encounter Details Date Type Department Care Team (Late st Contact Info) Description 01/06/2016 Refill [facility] [address] [place] [phone] Melissa Guillen PA-C [facility] [address] [facility], [facility] 200 [place], [place] [phone] Medication Refill Social History Tobacco Use Types [...] filedocumented in this encounter Care Teams Associate Dentist Relationship Specialty Start Date End Date Monica Perrin MD [address] [facility] [address] [place], [place] [address] PCP - General potato peeling machine operator 05/23/19 Erin Padron MD NO INFO AVAILABLE 12/08/22 Assigned PCP 10/29/17 11/17/18 Melissa Guillen PA-C [facility] [address], [facility] [address] [place], [place] [address] Assigned PCP 11/18/18 05/25/19 documented as of this encounter
--- OUTSIDE RECORDS SUMMARY | 2024-01-11 10:56 | XMS_ITS | Encounter Summary ---
Author Organization [place] Address [address] [place] [address]. [place] [address] Care Team Providers Care Blister Pack Operator Name Role Phone Erin Padron MD Unavailable UnavailMelissa Clemente PA-C Unavailable Monica Perrin MD Primary Care Provider Encounter Details Date Type Department Care Team (Late st Contact Info) Description 04/01/2007 [facility] Medical Advice [facility] [address] [place] [address] [address] [place] [phone] [facility] Social History Tobacco Use Types Packs/Day Years [...] on filedocumented in this encounter Care Teams Blister Pack Operator Relationship Specialty Start Date End Date Monica Perrin MD [address] [facility] [address] [place] [address] PCP - General membership director 05/23/19 Erin Padron MD NO INFO AVAILABLE 12/08/22 Assigned PCP 10/29/17 11/17/18 Melissa Guillen PA-C [facility] [address], [facility] [address] [place] [address] Assigned PCP 11/18/18 05/25/19 documented as of this encounter
--- OUTSIDE RECORDS SUMMARY | 2024-01-11 10:56 | XMS_ITS | Encounter Summary ---
Author Organization [place] Address [address] [place] [address]. [place] [address] Care Team Providers Care Flatbed Driver Name Role Phone Monica Perrin MD [...] on filedocumented in this encounter Care Teams Flatbed Driver Relationship Specialty Start Date End Date Monica Perrin MD [address] [facility] [address] [place] [address] PCP - General integrated pest management technician 05/23/19 documented as of this encounter
--- OUTSIDE RECORDS SUMMARY | 2024-01-11 10:56 | XMS_ITS | Encounter Summary ---
Author Organization [facility] Address [address] [place] [address]. [place] [address] Care Team Providers Care Supervisor Data Processing Name Role Phone Monica Perrin MD Primary Care Provider [phone] Encounter Details Date Type Department Care Team (Late st Contact Info) Description 02/22/2022 Orders Only [facility] Centralized Scheduling [address] [place] [phone] Jarrett Fiore MD [address] [place] [address] Encounter for laboratory testing for COVID-19 virus [...] the Xpert Xpress SARS-CoV-2 Assay on the [employer]. Additional information about this Emergency [...] COVID-19. This test was validated by the [facility]. This laboratory is certified under the Clinical Laboratory Improvement Amendments of 1988 (CLIA-88) as qualified to perform high complexity laboratory testing. Jarrett Fiore MD LAB - MICRO GENERAL ORDERABLES [facility] Inf. Diseases Diag. Lab [address] [facility], [address] [place] [address], [place] [phone] documented in this encounter Visit Diagnoses Diagnosis Encounter for laboratory testing for COVID-19 virus documented in this encounter Care Teams Supervisor Data Processing Relationship Specialty Start Date End Date Monica Perrin MD [address] [facility] [address] [place] [address] PCP - General technology applications engineer 05/23/19 documented as of this encounter
--- OUTSIDE RECORDS SUMMARY | 2024-01-11 10:56 | XMS_ITS | Encounter Summary ---
Author Organization [facility] Address [address] [place] [address]. [place] [address] Care Team Providers Care Chemical Plant Worker Name Role Phone Erin Padron MD Unavailable UnavailMelissa Clemente PA-C Unavailable Monica Perrin MD Primary Care Provider Encounter Details Date Type Department Care Team (Late st Contact Info) Description 09/11/2006 [facility] Medical Advice [facility] [address] [place] [address] [address] [place] [phone] [facility] Social History Tobacco Use Types Packs/Day Years [...] on filedocumented in this encounter Care Teams Chemical Plant Worker Relationship Specialty Start Date End Date Monica Perrin MD [address] [facility] [address] [facility] [address] [place] [address] PCP - General centerless grinder operator 05/23/19 Erin Padron MD NO INFO AVAILABLE 12/08/22 Assigned PCP 10/29/17 11/17/18 Melissa Guillen PA-C [facility] [address], [facility] [address] [place] [address] Assigned PCP 11/18/18 05/25/19 documented as of this encounter
--- OUTSIDE RECORDS SUMMARY | 2024-01-11 10:56 | XMS_ITS | Encounter Summary ---
Author Organization [facility] Address [address] [place] [address]. [place] [address] Care Team Providers Care Ed Transporter Name Role Phone Erin Padron MD Unavailable UnavailMelissa Clemente PA-C Unavailable Monica Perrin MD Primary Care Provider Encounter Details Date Type Department Care Team (Late st Contact Info) Description 08/14/2006 [facility] Medical Advice [facility] [address] [place] [address] [address] [place] [phone] [facility] Social History Tobacco Use Types Packs/Day [...] on filedocumented in this encounter Care Teams Ed Transporter Relationship Specialty Start Date End Date Monica Perrin MD [address] [facility] [address] [place] [address] PCP - General relief worker 05/23/19 Erin Padron MD NO INFO AVAILABLE 12/08/22 Assigned PCP 10/29/17 11/17/18 Melissa Guillen PA-C [facility] [address], [facility] [address] [place] [address] Assigned PCP 11/18/18 05/25/19 documented as of this encounter
== END 2024-01-10 10:55 | disposition home or self-care (01) ==
LOC: NFLDREF 01-11 10:53
PROVIDERS: PCP Internal Medicine; Referring Provider Internal Medicine; Visit Provider Internal Medicine
DX: D50.9 Iron deficiency anemia, unspecified (principal)
CPT/HCPCS: 82728

== ENCOUNTER 2024-10-08 10:37 | Outpatient (CLI) | payer MEDICARE, OTHER, SELFPAY | END 2024-10-08 10:38 | disposition home or self-care (01) | LOC: NFLDREF 10-10 18:58 | PROVIDERS: PCP Internal Medicine; Referring Provider Internal Medicine; Visit Provider Internal Medicine | DX: E78.5 Hyperlipidemia, unspecified (principal) | CPT/HCPCS: 80061 ==

== ENCOUNTER 2025-01-20 10:53 | Outpatient (CLI) | payer MEDICARE, OTHER, SELFPAY | END 2025-01-20 10:54 | disposition home or self-care (01) | LOC: NFLDREF 10:55 | PROVIDERS: PCP Internal Medicine; Visit Provider Internal Medicine | DX: R53.81 Other malaise (principal); R53.83 Other fatigue; Z86.2 Personal history of diseases of the blood and blood-forming organs and certain disorders involving the immune mechanism | CPT/HCPCS: 82728 ==